=== PATIENT | female | born 1945 | race Caucasian/White ===

== ENCOUNTER → 2017-09-30 08:37 | Outpatient (CLI) | payer MEDICARE, OTHER, SELFPAY ==
[2017-09-30 09:50] LABS: Erythrocyte Sedimentation Rate 1 MM/HR (0-20)
[2017-09-30 10:40] LABS: C-Reactive Protein Quant < 0.5 mg/dL (<1.0)
== END ==
PROVIDERS: Family Provider Internal Medicine; PCP Internal Medicine; Visit Provider Internal Medicine Rheumatology
DX: M06.4 Inflammatory polyarthropathy (principal)
CPT/HCPCS: 36415; 85651; 86140

== ENCOUNTER → 2017-10-04 10:57 | Outpatient (CLI) | payer MEDICARE, OTHER, SELFPAY | PROVIDERS: PCP Internal Medicine | DX: Z13.820 Encounter for screening for osteoporosis (principal); Z78.0 Asymptomatic menopausal state; E11.9 Type 2 diabetes mellitus without complications; Z82.62 Family history of osteoporosis | CPT/HCPCS: 77080 ==

== ENCOUNTER → 2017-12-01 07:36 | Outpatient (CLI) | payer MEDICARE, OTHER, SELFPAY ==
[2017-12-01 08:48] LABS: Erythrocyte Sedimentation Rate 2 MM/HR (0-20); High Sensitivity CRP - Cardiac 1.3 mg/L (1.0-3.0)
== END ==
PROVIDERS: PCP Internal Medicine; Visit Provider Internal Medicine Rheumatology
DX: N06.4 Isolated proteinuria with diffuse endocapillary proliferative glomerulonephritis (principal)
CPT/HCPCS: 36415; 85651; 86140

== ENCOUNTER → 2017-12-16 12:26 | Outpatient (CLI) | payer MEDICARE, OTHER, SELFPAY ==
[2017-12-16 13:15] LABS: Add Manual Diff / Slide Review NO; Basophils Percent Auto 0.9 % (0-2); Eosinophils Percent Auto 0.9 % (2-4); Hematocrit 42.8 % (36-46); Hemoglobin 14.2 g/dL (12.0-16.0); Lymphocytes Percent Auto 28.8 % (25-40); Mean Corpuscular HGB Conc 33.2 % (30-36); Mean Corpuscular Hemoglobin 30.6 PG (26-34); Mean Corpuscular Volume 92.3 fL (80-100); Monocytes Percent Auto 6.8 % (3-14); Neutrophils Absolute Auto 5600 /uL (3000-5900); Neutrophils Percent Auto 62.6 % (50-75); Platelet Count 293 X10^3/uL (150-400); Red Blood Cell Count 4.64 X10^6/uL (4.0-5.2); Red Cell Distribution Width 13.8 % (11.6-14.8)
[2017-12-16 13:40] LABS: Alanine Aminotransferase 23 IU/L (9-52); Aspartate Aminotransferase 23 IU/L (14-36); BUN Creatinine Ratio 21.4 (6-22); Blood Urea Nitrogen 15 mg/dL (7-17); Calcium 9.5 mg/dL (8.4-10.2); Carbon Dioxide 32 mmol/L (22-32); Chloride 104 mmol/L (98-107); Cholesterol 153 mg/dL (140-199); Estimated Glomerular Filt Rate > 60.0 mL/min (>60); Glucose 106 mg/dL (80-110); HDL Cholesterol 82 mg/dL (40-60); HEMOLYSIS < 15 (0-50); LDL Cholesterol Calculated 56 mg/dL (<100); Sodium 144 mmol/L (137-145); Triglycerides 77 mg/dL (35-150)
[2017-12-16 13:44] LABS: Hemoglobin A1C% w Est Avg Glu 6.6 % (4.0-6.0)
[2017-12-16 14:28] LABS: Vitamin B12 825 pg/mL (239-931)
== END ==
PROVIDERS: Family Provider Internal Medicine Endocrinology, Diabetes & Metabolism; PCP Internal Medicine; Referring Provider Internal Medicine Rheumatology; Visit Provider Internal Medicine
DX: I10 Essential (primary) hypertension (principal); E11.9 Type 2 diabetes mellitus without complications; D51.9 Vitamin B12 deficiency anemia, unspecified
CPT/HCPCS: 36415; 80048; 80061; 82607; 83036; 84443; 84450; 84460; 85025

== ENCOUNTER → 2018-01-03 10:47 | Outpatient (CLI) | payer MEDICARE, OTHER, SELFPAY ==
[2018-01-03 12:35] LABS: C-Reactive Protein Quant < 0.5 mg/dL (<1.0); Erythrocyte Sedimentation Rate 4 MM/HR (0-20)
== END ==
PROVIDERS: Family Provider Internal Medicine Endocrinology, Diabetes & Metabolism; PCP Internal Medicine; Visit Provider Internal Medicine Rheumatology
DX: M06.4 Inflammatory polyarthropathy (principal)
CPT/HCPCS: 36415; 85651; 86140

== ENCOUNTER → 2018-02-17 09:09 | Outpatient (CLI) | payer MEDICARE, OTHER, SELFPAY ==
[2018-02-17 10:07] LABS: C-Reactive Protein Quant < 0.5 mg/dL (<1.0)
[2018-02-17 10:20] LABS: Erythrocyte Sedimentation Rate 2 MM/HR (0-20)
== END ==
PROVIDERS: Family Provider Internal Medicine Endocrinology, Diabetes & Metabolism; PCP Internal Medicine; Visit Provider Internal Medicine Rheumatology
DX: M06.4 Inflammatory polyarthropathy (principal)
CPT/HCPCS: 36415; 85651; 86140

== ENCOUNTER → 2018-04-21 09:53 | Outpatient (CLI) | payer MEDICARE, OTHER, SELFPAY ==
[2018-04-21 11:12] LABS: Erythrocyte Sedimentation Rate 5 MM/HR (0-20)
[2018-04-21 11:32] LABS: C-Reactive Protein Quant < 0.5 mg/dL (<1.0)
== END ==
PROVIDERS: Family Provider Internal Medicine Endocrinology, Diabetes & Metabolism; PCP Internal Medicine; Visit Provider Internal Medicine Rheumatology
DX: M06.4 Inflammatory polyarthropathy (principal)
CPT/HCPCS: 36415; 85651; 86140

== ENCOUNTER → 2018-05-22 10:17 | Outpatient (CLI) | payer MEDICARE, OTHER, SELFPAY ==
[2018-05-22 12:06] LABS: Erythrocyte Sedimentation Rate 8 MM/HR (0-20)
[2018-05-22 12:41] LABS: C-Reactive Protein Quant < 0.5 mg/dL (<1.0)
== END ==
PROVIDERS: Family Provider Internal Medicine Endocrinology, Diabetes & Metabolism; PCP Internal Medicine; Visit Provider Internal Medicine Rheumatology
DX: M06.4 Inflammatory polyarthropathy (principal)
CPT/HCPCS: 36415; 85651; 86140

== ENCOUNTER → 2018-06-27 09:19 | Outpatient (CLI) | payer MEDICARE, OTHER, SELFPAY ==
[2018-06-27 10:33] LABS: Erythrocyte Sedimentation Rate 6 MM/HR (0-20)
[2018-06-27 10:38] LABS: Alanine Aminotransferase 30 IU/L (9-52); Aspartate Aminotransferase 23 IU/L (14-36); C-Reactive Protein Quant < 0.5 mg/dL (<1.0); Cholesterol 162 mg/dL (140-199); HDL Cholesterol 78 mg/dL (40-60); LDL Cholesterol Calculated 62 mg/dL (<100); Triglycerides 112 mg/dL (35-150)
== END ==
PROVIDERS: Family Provider Internal Medicine Endocrinology, Diabetes & Metabolism; PCP Internal Medicine; Visit Provider Internal Medicine Rheumatology
DX: M06.4 Inflammatory polyarthropathy (principal); E78.00 Pure hypercholesterolemia, unspecified
CPT/HCPCS: 36415; 80061; 84450; 84460; 85651; 86140

== ENCOUNTER → 2018-08-25 08:59 | Outpatient (CLI) | payer MEDICARE, OTHER, SELFPAY ==
[2018-08-25 10:03] LABS: Erythrocyte Sedimentation Rate 6 MM/HR (0-20)
[2018-08-25 17:48] LABS: High Sensitivity CRP - Cardiac 1.1 mg/L (1.0-3.0)
== END ==
PROVIDERS: Family Provider Internal Medicine Endocrinology, Diabetes & Metabolism; PCP Internal Medicine; Visit Provider Internal Medicine Rheumatology
DX: M06.4 Inflammatory polyarthropathy (principal)
CPT/HCPCS: 36415; 85651; 86140

== ENCOUNTER 2018-09-26 12:26 | Day surgery (SDC) | payer MEDICARE, OTHER, SELFPAY ==
--- NOTE | 2018-09-26 | PATH_ITS ---
[facility] Accession Number: [id number] . 01 Material submitted: . PART A: colon - CECAL POLYP PART B: colon - TRANSVERSE COLON POLYP X2 . 02 Diagnosis: A. Cecum, Polyp, Biopsy: Colonic mucosa with no diagnostic abnormality, consistent with polypoid redundancy. Negative for dysplasia and malignancy. Additional levels were examined. . B. Transverse Colon, Polyps x2, Biopsies: Tubular adenomas. MRV/09/28/2018 . 02 Electronically signed: . Ida Ahn MD, Pathologist NPI- [id number] . 01 Gross description: . Part A: CECAL POLYP: Received in formalin is 1 fragment(s) of gonzalez, soft tissue measuring 0.6 x 0.2 x 0.2 cm which is entirely submitted and submitted entirely in 1 cassette(s) Part B: TRANSVERSE COLON POLYP X2: Received in formalin are 2 fragment(s) of gonzalez, soft tissue measuring 0.2 x 0.2 x 0.2 cm to 0.3 x 0.3 x 0.2 cm which is entirely submitted and submitted entirely in 1 cassette(s) /DMC /DMC . 02 Pathologist provided ICD-10: D12.3 . 02 CPT . 458826, 978230 Performed at: 01 [facility] [address], [place], [place] [id number] MD Raffy Lara MD Phone: [phone] Performed at: 02 [facility] [address] [place], [place] [id number] MD Ida Ahn MD Phone: [phone]
--- NOTE | 2018-09-26 09:23 | P.HP_ITS ---
History of Present Illness Date Patient Seen: 09/26/18 Chief complaint: [id number] Narrative: 72-year-old female who is here for colon cancer screening. Prior colonoscopy performed in 2008 was normal. There is no family history of colon cancer. Patient currently has no active GI issues Patient History Family & Social History Tobacco & Substance use: Smoking Status Never smoker Meds Home Medications Medication Instructions Recorded Confirmed Type Calcium/Vitamin D (#CITRACAL + D 1 tab PO Q DAY #0 11/18/11 04/03/18 History 315 MG-200 IU) Coenzyme Q10 (#CO Q-10) 50 mg PO QID #0 11/18/11 04/03/18 History Metformin Hydrochloride 500 mg PO BID #0 11/18/11 04/03/18 History (#GLUCOPHAGE) Multivitamin, Minerals, and 1 tab PO Q DAY #0 11/18/11 04/03/18 History (#CENTRUM SILVER) metronidazole [MetroCream] 0.75 % TOPICAL #45 gm 05/04/12 04/03/18 History cyanocobalamin (vitamin B-12) 1,000 mcg PO #0 11/23/15 04/03/18 History pramipexole [Mirapex] 0.25 mg PO HS #0 tab 12/10/15 04/03/18 History pregabalin [Lyrica] 75 mg PO BID #0 cap 01/06/16 04/03/18 History pravastatin 40 mg PO HS #0 03/08/16 04/03/18 History TUMERIC PO 09/19/17 04/03/18 History triamcinolone acetonide 0.1 % 1 applictn TOP DAILY 09/19/17 04/03/18 History topical cream calcium carbonate 600 mg calcium 600 mg PO DAILY tab 10/05/17 04/03/18 History (1,500 mg) tablet cholecalciferol (vitamin D3) 2,000 2,000 unit PO DAILY 10/05/17 04/03/18 History unit capsule esomeprazole magnesium 40 mg 40 mg PO DAILY 10/05/17 04/03/18 History capsule,delayed release duloxetine 30 mg capsule,delayed 30 mg PO QDAY #90 cap 04/03/18 Rx release losartan 25 mg PO DAILY 09/26/18 09/26/18 History Allergies Allergy/AdvReac Type Severity Reaction Status Date / Time No Known Drug Allergies Allergy Verified 09/26/18 13:19 Review of Systems Review of Systems All systems reviewed & are unremarkable except as noted in HPI and below Exam Narrative Exam Narrative: General: Patient is overweight, not in apparent distress Cardiovascular: Regular rate and rhythm, no murmurs, rubs, or gallops; no evidence of edema; no palpable abdominal aortic aneurysm Gastrointestinal: Normoactive bowel sounds, soft, nontender, nondistended, no rebound tenderness, no hepatosplenomegaly, no evidence of hernia Assessment & Plan Assessment & Plan narrative: 72-year-old female here for colon cancer screening Regarding the procedure(s), the risks and potential complications, benefits, and alternatives (including not doing the procedure) were discussed with the p atient. The risks include but are not limited to bleeding, splenic injury, infection, perforation which may require surgical intervention, missed lesions, and adverse reactions to sedative medicines. After a question and answer period, the patient agreed to proceed with the procedure(s) and gives informed consent.
[2018-09-26 13:20] VITALS: BMI 26.2
[2018-09-26 13:25] VITALS: BP 148/76; PULSE 69; RESP 15; TEMP 36.3; O2SAT 98
[2018-09-26] MEDS: SODIUM CHLORIDE 0.9% 1,000 ML 70 ML IV (13:46)
[2018-09-26] MEDS: MIDAZOLAM 5 MG/5 ML VIAL IV (14:12)
--- NOTE | 2018-09-26 14:12 | P.OP.ENDO_ITS ---
Operative Date/Time/Diagnoses Date of procedure: 09/26/18 Procedure Notes Procedure in detail: Surgeon: Levon Ford MD Procedure: Colonoscopy with polypectomy Preoperative diagnosis: Colon cancer screening Postoperative diagnosis: Colon polyps x3 status post polypectomy; grade 2 i nternal hemorrhoids Medications: Conscious sedation using 2 mg IV of Midazolam and 100 mcg IV of Fentanyl Preanesthesia Assessment An H and P was performed/updated and the Px?s ASA class is 2. The procedure was discussed in detail with the patient. The potential risks and complications including infection, bleeding, missed lesions, perforation, need for surgery in case of perforation, prolonged hospital stay, and were explained. A brief question and answer period was allotted and once all questions were answered, informed consent was obtained. The patient was brought back to the procedure room and placed on standard monitoring. The patient?s vital signs were monitored continuously throughout the entire procedure. Prior to starting, a timeout was performed to confirm the patient?s identity, allergies, medications, and procedure. Procedure in detail The patient was placed in left lateral decubitus position and once adequate sedation was obtained a [place] was performed. Perianal exam revealed external skin tags. The digital rectal examination did not reveal any palpable lesions. The tip of the colonoscope was placed in the anal canal and advanced without difficulty all the way to the cecum which was identified by the appendiceal orifice and the ileocecal valve. Careful examination of all pena of the colon was performed with irrigation of any residual stool. In the cecum, a 2 mm sessile polyp was removed by means of cold Jumbo forceps. Resection and retrieval was complete. In the transverse colon, there were 2 sessile polyps measuring 2-3 mm. These were removed by means of cold Jumbo forceps. Resection and retrieval was complete. Retroflexion was performed in the rectum which revealed grade 2 internal hemorrhoids. The patient tolerated the procedure well and will be brought back to the recovery area to be discharged once criteria are met. The prep was judged to be good and adequate to identify polyps less than 5 mm. The withdrawal time was 11 minutes. The total physician intraservice time was 17 minutes. Complications There were no complications and estimated blood loss was minimal. Recommendations: Resume previous diet Continue outPx medications Follow up pathology results Repeat colonoscopy in 3 or 5 years depending on pathology results An emergency contact number was given to the patient for any complications related to the procedure
[2018-09-26] MEDS: fentaNYL 250 MCG/5 ML INJ IV (14:13)
[2018-09-26 14:30] VITALS: BP 114/58; PULSE 66; RESP 10; O2SAT 97
[2018-09-26 14:31] VITALS: BP 114/58; PULSE 66; RESP 10; TEMP 36.6; O2SAT 97
[2018-09-26 14:35] VITALS: BP 106/58; PULSE 68; RESP 12; O2SAT 96
[2018-09-26 14:40] VITALS: BP 117/63; PULSE 65; RESP 11; O2SAT 96
[2018-09-26 14:54] VITALS: BP 108/68; PULSE 63; RESP 15; TEMP 36.4; O2SAT 98
--- NOTE | 2018-09-26 15:16 | SUR.PHASEII ---
1505 States that she feels ready to go home. Tolerating PO well. Instructions reviewed, no questions. Preparing to discharge.
--- NOTE | 2018-09-26 15:18 | SUR.PHASEII ---
Patient states that she will resume her usual diabetes regiment.
--- NOTE | 2018-09-26 15:30 | SUR.PHASEII ---
1522 Stable, pleasant, oriented. To car in by RN. No questions/concerns
== END 2018-09-26 15:22 | disposition home or self-care (01) ==
PROVIDERS: Family Provider Internal Medicine Endocrinology, Diabetes & Metabolism; PCP Internal Medicine; Visit Provider Internal Medicine Gastroenterology
PROC: 0DJD8ZZ Inspection of Lower Intestinal Tract, Via Natural or Artificial Opening Endoscopic (ICD-10-PCS; CPT 45378; principal; 2018-09-26 14:00)
DX: Z12.11 Encounter for screening for malignant neoplasm of colon (principal); K64.1 Second degree hemorrhoids; D12.3 Benign neoplasm of transverse colon
CPT/HCPCS: 45380; 88305; J2250; J3010

== ENCOUNTER → 2019-02-12 10:17 | Outpatient (CLI) | payer MEDICARE, OTHER, SELFPAY ==
[2019-02-12 12:03] LABS: Alanine Aminotransferase 21 IU/L (9-52); Aspartate Aminotransferase 25 IU/L (14-36); BUN Creatinine Ratio 27.1 (6-22); Blood Urea Nitrogen 19 mg/dL (7-17); Calcium 9.9 mg/dL (8.4-10.2); Carbon Dioxide 29 mmol/L (22-32); Chloride 100 mmol/L (98-107); Cholesterol 169 mg/dL (140-199); Estimated Glomerular Filt Rate > 60.0 mL/min (>60); Glucose 113 mg/dL (80-110); HDL Cholesterol 75 mg/dL (40-60); HEMOLYSIS < 15 (0-50); LDL Cholesterol Calculated 74 mg/dL (<100); Potassium 4.8 mmol/L (3.4-5.1); Sodium 139 mmol/L (137-145); Triglycerides 99 mg/dL (35-150)
== END ==
PROVIDERS: PCP Internal Medicine; Visit Provider Internal Medicine
DX: I10 Essential (primary) hypertension (principal); E78.00 Pure hypercholesterolemia, unspecified
CPT/HCPCS: 36415; 80048; 80061; 84450; 84460

== ENCOUNTER → 2019-04-26 16:01 | Outpatient (CLI) | payer MEDICARE, OTHER, SELFPAY ==
--- NOTE | 2019-04-26 | DI.MRI.S_ITS ---
PROCEDURE: MR LUMBAR SPINE WO CON INDICATIONS: Low back pain TECHNIQUE: Noncontrast sagittal T1 spin echo and T2 fast echo, sagittal STIR, axial T1 and T2 fast spin echo through the lumbar spine. In cases with scoliosis, additional coronal T2 fast spin echo may be performed. COMPARISON: None. FINDINGS: Image quality: Excellent. Alignment and Curvature: There is moderate dextroconvex lumbar scoliosis. Bone Marrow: Marrow is of normal overall signal. No acute vertebral body compression fractures. Spinal Cord: Conus medullaris terminates at the L1 level. Visualized cord demonstrates normal signal and size. Paraspinous Soft Tissues: No paravertebral masses. A 2.7 cm left renal cyst is seen laterally. T12-L1: No significant abnormality is seen. L1-L2: The disc height and disc signal are relatively well-preserved. No significant disc bulge is seen. Moderate facet joint hypertrophy is seen. No significant neural foraminal or central canal narrowing can be seen. When comparison is made with the prior examination, these findings are similar. L2-L3: The disc height is well-preserved. Loss of disc signal is seen at this level. Mild generalized disc bulge is seen. Moderate facet joint hypertrophy is seen. There is mild left-sided and no right-sided neural foraminal narrowing seen. No central canal narrowing is seen. When comparison is made with the prior examination, these findings are similar. L3-L4: At least moderate loss of disc height and disc signal can be seen. Moderate disc bulge is seen, which is eccentric to the left. There is a mild central disc protrusion present. Moderate facet joint hypertrophy is seen. There is moderate left-sided and mild right-sided neural foraminal narrowing seen. Kezo-la-nrmmgckl central canal narrowing is seen. When comparison is made with the prior examination, these findings are similar. L4-L5: Mild to moderate loss of disc height and disc signal can be seen. Moderate disc bulge is seen, with a central disc protrusion. There is moderate to prominent right-sided and moderate left-sided neural foraminal narrowing seen. There is moderate right-sided and mild left-sided neural foraminal narrowing seen. Moderate central canal narrowing is seen. These imaging findings have mildly progressed compared to the prior study. L5-S1: Moderate to severe loss of disc height and disc signal are seen. Moderate disc bulge is seen, with a central disc extrusion. Moderate facet joint hypertrophy is seen. There is at least moderate right-sided and moderate to severe left-sided neural foraminal narrowing seen at compression can be seen upon the exiting nerve roots, left worse than right. Moderate central canal narrowing is seen. When comparison is made with the prior examination, these findings are similar. IMPRESSION: Numerous levels of lumbar spine degenerative change are seen, which are similar to 2011, although mildly progressed at the L4-L5 level since that time. Dictated by: Brendon Marte M.D. on 04/26/2019 at 16:45 Approved by: Brendon Marte M.D. on 04/26/2019 at 16:51
== END ==
PROVIDERS: PCP Internal Medicine; Visit Provider Orthopaedic Surgery
DX: M54.5 Low back pain (principal); M47.816 Spondylosis without myelopathy or radiculopathy, lumbar region; M47.817 Spondylosis without myelopathy or radiculopathy, lumbosacral region
CPT/HCPCS: 72148

== ENCOUNTER → 2019-08-09 15:47 | Outpatient (CLI) | payer MEDICARE, OTHER, SELFPAY ==
[2019-08-11 05:07] LABS: COVID19 Sendout Not Detected (Not Detected)
== END ==
PROVIDERS: PCP Internal Medicine; Visit Provider Physician Assistant
DX: R68.89 Other general symptoms and signs (principal)
CPT/HCPCS: 87635

== ENCOUNTER → 2019-08-09 15:57 | Outpatient (CLI) | payer MEDICARE, OTHER, SELFPAY ==
[2019-08-09 16:21] LABS: Add Manual Diff / Slide Review NO; Basophils Absolute Auto 100 /uL (0-100); Basophils Percent Auto 1.2 % (0-2); Eosinophils Absolute Auto 100 /uL (0-450); Hematocrit 41.3 % (36-46); Hemoglobin 13.6 g/dL (12.0-16.0); Lymphocytes Absolute Auto 2600 /uL (1100-4500); Lymphocytes Percent Auto 34.9 % (25-40); Mean Corpuscular Hemoglobin 30.2 PG (26-34); Mean Corpuscular Volume 91.7 fL (80-100); Monocytes Absolute Auto 500 /uL (0-900); Neutrophils Absolute Auto 4200 /uL (1500-7000); Neutrophils Percent Auto 54.9 % (50-75); Platelet Count 298 X10^3/uL (150-400); Red Blood Cell Count 4.51 X10^6/uL (4.0-5.2); Red Cell Distribution Width 13.7 % (11.6-14.8); White Blood Cell Count 7.6 X10^3/uL (4.5-11.0)
[2019-08-09 16:35] LABS: Hemoglobin A1C% w Est Avg Glu 6.7 % (4.0-6.0)
[2019-08-09 16:39] LABS: Erythrocyte Sedimentation Rate 8 MM/HR (0-20)
[2019-08-09 17:00] LABS: Alanine Aminotransferase 13 IU/L (<35); Albumin 4.6 g/dL (3.5-5.0); Albumin Globulin Ratio 1.7 (1.0-2.8); Alkaline Phosphatase 47 U/L (38-126); Aspartate Aminotransferase 23 IU/L (14-36); BUN Creatinine Ratio 26.9 (6-22); Bilirubin Total 0.3 mg/dL (0.2-1.3); Blood Urea Nitrogen 18 mg/dL (7-17); Calcium 9.8 mg/dL (8.4-10.2); Carbon Dioxide 27 mmol/L (22-32); Chloride 102 mmol/L (98-107); Estimated Glomerular Filt Rate > 60.0 mL/min (>60); Globulin 2.7 g/dL (1.7-4.1); Glucose 109 mg/dL (80-110); HEMOLYSIS < 15 (0-50); Potassium 4.5 mmol/L (3.4-5.1); Sodium 137 mmol/L (137-145); Total Protein 7.3 g/dL (6.3-8.2)
[2019-08-09 17:04] LABS: Prealbumin 25.2 mg/dL (17.6-36.0)
[2019-08-09 17:16] LABS: Vitamin D 25 Hydroxy (D3) 78.2 ng/mL (30.0-100.0)
[2019-08-09 17:29] LABS: TSH w/ Reflex to FT4 0.54 uIU/mL (0.47-4.68)
[2019-08-09 17:34] LABS: C-Reactive Protein Quant < 0.5 mg/dL (<1.0)
[2019-08-09 17:46] LABS: Vitamin B12 949 pg/mL (239-931)
== END ==
PROVIDERS: PCP Internal Medicine; Referring Provider Internal Medicine; Visit Provider Internal Medicine
DX: R63.4 Abnormal weight loss (principal); M35.3 Polymyalgia rheumatica; E11.9 Type 2 diabetes mellitus without complications; E53.8 Deficiency of other specified B group vitamins; R68.89 Other general symptoms and signs; Z92.241 Personal history of systemic steroid therapy; E55.9 Vitamin D deficiency, unspecified
CPT/HCPCS: 36415; 80053; 82306; 82607; 83036; 84134; 84443; 85025; 85651; 86140; 87635

== ENCOUNTER → 2020-03-25 11:27 | Outpatient (CLI) | payer MEDICARE, OTHER, SELFPAY ==
--- NOTE | 2020-03-25 | DI.MG.S_ITS ---
BILATERAL DIGITAL SCREENING MAMMOGRAM 3D/2D WITH CAD: 03/25/2020 CLINICAL: Routine screening. Comparison is made to exams dated: 11/11/2016 mammogram, 11/06/2015 mammogram, and 08/14/2014 mammogram - [facility]. There are scattered fibroglandular elements in both breasts. Current study was also evaluated with a Computer Aided Detection (CAD) system. No significant masses, calcifications, or other findings are seen in either breast. There has been no significant interval change. IMPRESSION: NEGATIVE There is no mammographic evidence of malignancy. A 1 year screening mammogram is recommended. This exam was interpreted at Station ID: [id number]. NOTE: For mammograms, a report in lay terms will be sent to the patient. Approximately 15% of breast malignancies will not be visualized mammographically. In the management of a palpable breast mass, a negative mammogram must not discourage biopsy of a clinically suspicious lesion. Electronically Signed By: Jacob sandra/tay:03/25/2020 13:30:17 copy to: Brayden Stuart letter sent: Normal Exam ACR BI-RADS Category 1: Negative [id number]
== END ==
PROVIDERS: PCP Internal Medicine; Referring Provider Internal Medicine; Visit Provider Internal Medicine
DX: Z12.31 Encounter for screening mammogram for malignant neoplasm of breast (principal)
CPT/HCPCS: 77063; 77067

== ENCOUNTER → 2020-04-14 08:35 | Outpatient (CLI) | payer MEDICARE, OTHER, SELFPAY ==
[2020-04-14 10:08] LABS: Hemoglobin A1C% w Est Avg Glu 6.5 % (4.0-6.0)
[2020-04-14 10:28] LABS: Erythrocyte Sedimentation Rate 4 MM/HR (0-20)
[2020-04-14 10:32] LABS: Alanine Aminotransferase 17 IU/L (<35); Albumin 4.3 g/dL (3.5-5.0); Albumin Globulin Ratio 1.9 (1.0-2.8); Alkaline Phosphatase 41 U/L (38-126); Aspartate Aminotransferase 26 IU/L (14-36); BUN Creatinine Ratio 31.6 (6-22); Bilirubin Total 0.3 mg/dL (0.2-1.3); Blood Urea Nitrogen 24 mg/dL (7-17); Calcium 9.5 mg/dL (8.4-10.2); Carbon Dioxide 30 mmol/L (22-32); Chloride 102 mmol/L (98-107); Cholesterol 148 mg/dL (140-199); Estimated Glomerular Filt Rate > 60.0 mL/min (>60); Globulin 2.3 g/dL (1.7-4.1); Glucose 116 mg/dL (80-110); HDL Cholesterol 81 mg/dL (40-60); HEMOLYSIS < 15 (0-50); LDL Cholesterol Calculated 52 mg/dL (<100); Potassium 4.7 mmol/L (3.4-5.1); Sodium 137 mmol/L (137-145); Total Protein 6.6 g/dL (6.3-8.2); Triglycerides 77 mg/dL (35-150)
[2020-04-14 10:41] LABS: C-Reactive Protein Quant < 0.5 mg/dL (<1.0)
[2020-04-14 11:21] LABS: Creatinine Urine Random 92.5 mg/dL
[2020-04-14 11:26] LABS: Microalbumin Urine Random < 0.6 mg/dL (0-1.6)
== END ==
PROVIDERS: PCP Internal Medicine; Referring Provider Student in an Organized Health Care Education/Training Program; Visit Provider Student in an Organized Health Care Education/Training Program
DX: I10 Essential (primary) hypertension (principal); E11.9 Type 2 diabetes mellitus without complications; E78.5 Hyperlipidemia, unspecified; M35.3 Polymyalgia rheumatica
CPT/HCPCS: 36415; 80053; 80061; 82043; 82570; 83036; 85651; 86140

== ENCOUNTER → 2020-07-06 07:11 | Outpatient (CLI) | payer MEDICARE, OTHER, SELFPAY ==
[2020-07-06 08:21] LABS: Hemoglobin A1C% w Est Avg Glu 6.5 % (4.0-6.0)
== END ==
PROVIDERS: PCP Student in an Organized Health Care Education/Training Program; Referring Provider Internal Medicine; Visit Provider Student in an Organized Health Care Education/Training Program
DX: E11.9 Type 2 diabetes mellitus without complications (principal)
CPT/HCPCS: 36415; 83036

== ENCOUNTER → 2020-09-15 08:17 | Outpatient (CLI) | payer MEDICARE, OTHER, SELFPAY ==
[2020-09-15 17:49] LABS: Hemoglobin A1C% w Est Avg Glu 6.5 % (4.0-6.0)
[2020-09-15 18:17] LABS: Thyroid Stimulating Hormone 0.984 uIU/mL (0.47-4.68)
== END ==
PROVIDERS: PCP Student in an Organized Health Care Education/Training Program; Referring Provider Internal Medicine Endocrinology, Diabetes & Metabolism; Visit Provider Internal Medicine Endocrinology, Diabetes & Metabolism
DX: E11.42 Type 2 diabetes mellitus with diabetic polyneuropathy (principal)
CPT/HCPCS: 36415; 83036; 84443

== ENCOUNTER → 2020-11-05 10:32 | Outpatient (CLI) | payer MEDICARE, OTHER, SELFPAY ==
[2020-11-05 11:16] LABS: COVID19 -Nasal RAPID Negative (Negative)
== END ==
PROVIDERS: PCP Student in an Organized Health Care Education/Training Program; Visit Provider Specialist
DX: Z20.822 Contact with and (suspected) exposure to COVID-19 (principal)
CPT/HCPCS: 87635; C9803

== ENCOUNTER 2020-11-06 06:34 | Day surgery (SDC) | payer MEDICARE, OTHER, SELFPAY ==
[2020-11-06] VITALS (7 sets, daily range): BP systolic 102–124; BP diastolic 42–70; PULSE 60–71; RESP 14–19; TEMP 36.1–36.5; O2SAT 94–99; BMI 26.9
--- NOTE | 2020-11-06 | PATH_ITS ---
[facility] Accession Number: [id number] . 01 Material submitted: . colon - ASCENDING COLON POLYP BIOPSY . 02 Diagnosis: Ascending Colon, Polyp, Biopsy: Tubular adenoma. MRV 11/11/2020 1015 Local . 02 Electronically signed: . Ida Ahn MD, Pathologist NPI- [id number] . 01 Gross description: . ASCENDING COLON POLYP BIOPSY: Received in formalin are 2 fragment(s) of gonzalez, soft tissue measuring 0.4 x 0.3 x 0.2 cm to 0.2 x 0.1 x 0.1 cm submitted entirely in 1 cassette(s) /GRIS 11/07/2020 0242 Local . 02 Pathologist provided ICD-10: D12.2 . 02 CPT . 452584 Performed at: 01 [facility] [address] [id number] MD Raffy Lraa MD Phone: [phone] Performed at: 02 [facility] [id number] [facility] [address] [place], [place] [id number] MD Ida Ahn MD Phone: [phone]
[2020-11-06] MEDS: LACTATED RINGERS 1,000 ML 42 ML IV (07:39)
--- NOTE | 2020-11-06 08:02 | P.HP_ITS ---
History of Present Illness History of Present Illness [place] [facility] [place]ative: Patient is a woman who had a colonoscopy by a another physician. She is not sure when that was but she was told to come back in 2 years per her history. She may be overdue. Patient History Medical History Polymyalgia rheumatica Surgical History History of blepharoplasty Status post appendectomy Status post bunionectomy Status post tonsillectomy and adenoidectomy Family & Social History Social History: household members spouse Tobacco & Substance use: Smoking Status Never smoker alcohol intake frequency a few times a week Substance Use Type does not use Meds Home Medications and Allergies Home Medications Medication Instructions Recorded Confirmed Type Calcium/Vitamin D (#CITRACAL + D 1 tab PO Q DAY #0 11/18/11 08/09/19 History 315 MG-200 IU) Coenzyme Q10 (#CO Q-10) 50 mg PO QID #0 11/18/11 11/06/20 History metformin 500 mg tablet,extended 1,000 mg PO BID #0 11/18/11 11/06/20 History release 24 hr cyanocobalamin (vitamin B-12) 1,000 mcg PO #0 11/23/15 08/09/19 History 1,000 mcg tablet,extended release pramipexole 0.25 mg tablet 0.25 mg PO HS #0 tab 12/10/15 11/06/20 History (Mirapex) pregabalin 75 mg capsule (Lyrica) 75 mg PO DAILY #0 cap 01/06/16 11/06/20 History pravastatin 40 mg tablet 40 mg PO HS #0 03/08/16 11/06/20 History TUMERIC PO 09/19/17 08/09/19 History triamcinolone acetonide 0.1 % 1 applictn TOP DAILY 09/19/17 11/06/20 History topical cream calcium carbonate 600 mg calcium 600 mg PO DAILY tab 10/05/17 11/06/20 History (1,500 mg) tablet cholecalciferol (vitamin D3) 50 2,000 unit PO DAILY 10/05/17 11/06/20 History mcg (2,000 unit) capsule duloxetine 30 mg capsule,delayed 30 mg PO QDAY #90 cap 04/03/18 11/06/20 Rx release losartan 25 mg tablet 25 mg PO BID tab 08/09/19 11/06/20 History sodium,potassium,mag sulfates 17.5 177 ml PO DAILY #354 ml 10/14/20 Rx gram-3.13 gram-1.6 gram oral soln Allergies Allergy/AdvReac Type Severity Reaction Status Date / Time No Known Drug Allergies Allergy Verified 08/09/19 15:29 Review of Systems Review of Systems Narrative: Patient's sugar this morning was 122. She is diabetic. She has no heart or breathing problems at this time. She suffers from constipation intermittently. No seizures or blackouts. Exam Vital Signs (past 8 hours): - 11/06/20 07:23 Temperature 97.7 F Pulse Rate 71 Respiratory Rate 16 Blood Pressure 102/70 Pulse Oximetry 99 Oxygen Delivery Method Room Air Narrative Exam Narrative: Pleasant cooperative patient no apparent distress. Lungs are clear to auscultation. No rales or rhonchi. Heart regular rate and rhythm no murmur gallop. Abdomen is soft nontender without mass. No obvious hernias. Patient is alert and oriented x3. Assessment & Plan Assessment & Plan narrative: The patient for a screening colonoscopy. I have discussed the procedure with them. Risks of bleeding, perforation which would necessitate major operation, failure to find remove all lesions, the potential tattoo were all discussed. All questions were answered. They wished to proceed.
--- NOTE | 2020-11-06 08:04 | PM.PREOP ---
Pre-operative Note COVID-19 COVID-19 status: Negative Result date/Date tested (Pos, Neg/Pending): 11/05/20 Interval Note History & Physical reviewed/Exam performed by Physician: Yes Changes to H&P: No ASA Class (for procedural sedation): II
[2020-11-06] MEDS: fentaNYL 250 MCG/5 ML INJ IV (08:14)
[2020-11-06] MEDS: MIDAZOLAM 5 MG/5 ML VIAL IV (08:15)
--- NOTE | 2020-11-06 08:43 | PM.OP.ENDO ---
Operative Date/Time/Diagnoses Date of procedure: 11/06/20 Time of procedure: 08:43 Pre-op diagnosis: Personal history of polyps. Recommendation for repeat colonoscopy in 2 years. She believes she has gone beyond that time. Post-op diagnosis: same ( small Polyp in the ascending colon . occasional diverticuli.) Procedure & Clinicians Study performed: Colonoscopy with cold biopsy Same procedure as scheduled: Yes Indications: screening in a high risk patient Surgeon: Acosta Funes Procedure Notes SCOAP/Timeout: performed Procedure in detail: The patient was placed in the left lateral decubitus position and underwent IV sedation directed by the surgeon consisting of fentanyl and Versed. Digital exam was Remarkable for protruding internal hemorrhoid.. The scope was inserted and advanced through the rectum into the sigmoid, descending, transverse, and ascending colon. The patient had to be repositioned pressure applied a stiffener inserted in order to reach the cecum. The cecum was reached identified by the ileocecal valve and the appendiceal opening. The scope was gradually brought out. One Polyp was found in the ascending colon. It was biopsied and removed with cold forceps.. The scope ultimately was retroflexed in the rectum. The appearance was Unremarkable internally. The scope was removed and the patient tolerated the procedure well. the prep was very good Scope withdrawal time: 7 minutes( 8 total) Sedation minutes: 23 Findings: diverticulosis and polyp Specimen(s): other ( polyp) Post-procedure Recommendations: Colonscopy in 5 years Follow up: as needed Disposition: PACU
== END 2020-11-06 09:14 | disposition home or self-care (01) ==
PROVIDERS: PCP Student in an Organized Health Care Education/Training Program; Referring Provider Specialist; Visit Provider Specialist
PROC: 0DJD8ZZ Inspection of Lower Intestinal Tract, Via Natural or Artificial Opening Endoscopic (ICD-10-PCS; CPT 45378; principal; 2020-11-06 07:45)
DX: Z12.11 Encounter for screening for malignant neoplasm of colon (principal); Z86.010 Personal history of colon polyps; M35.3 Polymyalgia rheumatica; K57.30 Diverticulosis of large intestine without perforation or abscess without bleeding; D12.2 Benign neoplasm of ascending colon
CPT/HCPCS: 45380; 99152; J2250; J3010

== ENCOUNTER → 2021-08-04 07:02 | Outpatient (CLI) | payer MEDICARE, OTHER, SELFPAY ==
[2021-08-04 08:22] LABS: Hematocrit 42.2 % (36-46); Hemoglobin 14.1 g/dL (12.0-16.0); Mean Corpuscular HGB Conc 33.5 % (30-36); Mean Corpuscular Hemoglobin 30.6 PG (26-34); Mean Corpuscular Volume 91.2 fL (80-100); Platelet Count 293 X10^3/uL (150-400); Red Blood Cell Count 4.62 X10^6/uL (4.0-5.2); Red Cell Distribution Width 13.6 % (11.6-14.8); White Blood Cell Count 7.4 X10^3/uL (4.5-11.0)
[2021-08-04 08:23] LABS: Creatinine Urine Random 122.2 mg/dL
[2021-08-04 08:24] LABS: Protein (Total) Urine Random < 5 mg/dL (0-12); Protein Creatinine Ratio Urine 0.04 GRAM/24H
[2021-08-04 08:27] LABS: Hemoglobin A1C% w Est Avg Glu 6.8 % (4.0-6.0)
[2021-08-04 08:35] LABS: Alanine Aminotransferase 17 IU/L (<35); Albumin 4.8 g/dL (3.5-5.0); Albumin Globulin Ratio 1.6 (1.0-2.8); Alkaline Phosphatase 43 U/L (38-126); Aspartate Aminotransferase 26 IU/L (14-36); BUN Creatinine Ratio 25.6 (6-22); Bilirubin Total 0.5 mg/dL (0.2-1.3); Blood Urea Nitrogen 21 mg/dL (7-17); Calcium 9.6 mg/dL (8.4-10.2); Carbon Dioxide 31 mmol/L (22-32); Chloride 101 mmol/L (98-107); Cholesterol 175 mg/dL (140-199); Estimated Glomerular Filt Rate > 60 mL/min (>60); Glucose 126 mg/dL (80-110); HDL Cholesterol 84 mg/dL (40-60); HEMOLYSIS < 15 (0-50); LDL Cholesterol Calculated 71 mg/dL (<100); Potassium 4.5 mmol/L (3.4-5.1); Sodium 141 mmol/L (137-145); Total Protein 7.8 g/dL (6.3-8.2); Triglycerides 99 mg/dL (35-150)
[2021-08-05 16:39] LABS: Hep C Virus Ab w/Reflex Quant NEGATIVE s/c (NEGATIVE)
== END ==
PROVIDERS: PCP Student in an Organized Health Care Education/Training Program; Referring Provider Student in an Organized Health Care Education/Training Program; Visit Provider Student in an Organized Health Care Education/Training Program
DX: Z11.59 Encounter for screening for other viral diseases (principal); E11.40 Type 2 diabetes mellitus with diabetic neuropathy, unspecified; E78.5 Hyperlipidemia, unspecified
CPT/HCPCS: 36415; 80053; 80061; 82570; 83036; 84156; 85027; 86803

== ENCOUNTER → 2021-09-27 16:22 | Outpatient (CLI) | payer MEDICARE, OTHER, SELFPAY ==
--- NOTE | 2021-09-27 16:25 | DI.RAD.S_ITS ---
PROCEDURE: XR HIP W PEL IF DONE KAREN MIN 4V INDICATIONS: GLF 3 weeks ago with worsening hip pain TECHNIQUE: AP pelvis with lateral view(s) of the bilateral hip(s). COMPARISON: [facility], , HIP 2V LEFT, 02/17/2011, 15:23. FINDINGS: Bones: No fractures or dislocations. Pelvic ring appears intact. No suspicious bony lesions. Mild bilateral hip joint space narrowing. Moderate bilateral periarticular osteophyte formation at the hip joints. Soft tissues: The visualized bowel gas pattern is normal. No suspicious soft tissue calcifications. IMPRESSION: Hip joint osteoarthritis bilaterally. No acute fracture. No osseous lesion. If symptoms and/or clinical suspicion for pathology persist, further assessment with repeat, or advanced imaging (e.g., CT, MRI, or bone scan) may be helpful for further assessment. Dictated by: Yenifer Woodall M.D. on 09/27/2021 at 16:57 Approved by: Yenifer Woodall M.D. on 09/27/2021 at 16:57
== END ==
PROVIDERS: PCP Student in an Organized Health Care Education/Training Program; Referring Provider Student in an Organized Health Care Education/Training Program; Visit Provider Student in an Organized Health Care Education/Training Program
DX: M16.0 Bilateral primary osteoarthritis of hip (principal); M25.551 Pain in right hip; M25.552 Pain in left hip
CPT/HCPCS: 73522

== ENCOUNTER 2021-10-26 15:44 | Emergency (ER) | payer MEDICARE, OTHER, SELFPAY ==
[2021-10-26 15:48] VITALS: PULSE 81; RESP 16; TEMP 35.8; O2SAT 98; BMI 26.2
[2021-10-26 15:51] VITALS: BP 169/78
--- NOTE | 2021-10-26 15:53 | DI.US.S_ITS ---
PROCEDURE: US PERIPH VENOUS LOW EXTREM LT INDICATIONS: r/o DVT left leg swelling, pain. Recent flight TECHNIQUE: Real-time imaging, as well as color and pulse Doppler interrogation, were performed of the lower extremity deep veins from the inguinal ligament to the popliteal fossa. COMPARISON: None. FINDINGS: The common femoral, femoral and popliteal veins are normally compressible, and free of intraluminal thrombus. Color and pulse Doppler demonstrate normal phasic intraluminal flow. There is normal augmentation response to distal compression maneuver. Popliteal fossa collection measuring 5.7 x 2.2 x 1.5 cm. IMPRESSION: No left lower extremity DVT. Left Rubi's cyst measuring 5.7 cm. Dictated by: Greg Echavarria M.D. on 10/26/2021 at 17:37 Approved by: Greg Echavarria M.D. on 10/26/2021 at 17:38
--- NOTE | 2021-10-26 18:29 | DI.RAD.S_ITS ---
PROCEDURE: XR LUMBAR SPINE 2-3V INDICATIONS: low back pain with radiation to left hip TECHNIQUE: 3 views of the lumbar spine were acquired. COMPARISON: [facility], CR, XR LUMBAR SPINE 2 OR 3 VIEWS, 04/18/2019, 15:58. FINDINGS: Bones: Five [id number] vertebrae are present. There is mild dextroconvex curvature of the lumbar spine. Mild grade 1 anterolisthesis of L4 on L5 measuring 3 mm. No vertebral body compression fractures. No suspicious bony lesions. Multilevel disc space narrowing and degenerative endplate changes are seen that are most prominent at the L3-4 level. Multilevel facet hypertrophy is seen throughout the lumbar spine. Soft tissues: Overlying bowel gas pattern is normal. No suspicious soft tissue calcifications. IMPRESSION: 1. No acute osseous abnormality. If the symptoms persist, consider cross sectional imaging such as MRI or CT for further assessment. 2. Multilevel spondylosis. Dictated by: Cyrus Yepez M.D. on 10/26/2021 at 19:33 Approved by: Cyrus Yepez M.D. on 10/26/2021 at 19:35
--- NOTE | 2021-10-26 18:37 | ED.EXTPRO ---
HPI - Extremity Problem <LAY ChristyP - Last Filed: 10/26/21 19:47> General Chief complaint: Extremity Problem,Nontraumatic Stated complaint: LEFT LEG PAIN Time Seen by Provider: 10/26/21 18:04 Mode of arrival: Family Vehicle Related Data Home Medications Medication Instructions Recorded Confirmed Calcium/Vitamin D (#CITRACAL + D 1 tab PO Q DAY ##0 11/18/11 08/09/19 315 MG-200 IU) Coenzyme Q10 (#CO Q-10) 50 mg PO QID ##0 11/18/11 11/06/20 metformin 500 mg tablet,extended 1,000 mg PO BID ##0 11/18/11 11/06/20 release 24 hr cyanocobalamin (vitamin B-12) 1,000 mcg PO ##0 11/23/15 08/09/19 1,000 mcg tablet,extended release pramipexole 0.25 mg tablet 0.25 mg PO HS #0 tabs 12/10/15 11/06/20 (Mirapex) pregabalin 75 mg capsule (Lyrica) 75 mg PO DAILY #0 caps 01/06/16 11/06/20 pravastatin 40 mg tablet 40 mg PO HS ##0 03/08/16 11/06/20 TUMERIC PO 09/19/17 08/09/19 triamcinolone acetonide 0.1 % 1 applictn topical DAILY 09/19/17 11/06/20 topical cream calcium carbonate 600 mg calcium 600 mg PO DAILY 10/05/17 11/06/20 (1,500 mg) tablet cholecalciferol (vitamin D3) 50 2,000 unit PO DAILY 10/05/17 11/06/20 mcg (2,000 unit) capsule losartan 25 mg tablet 25 mg PO BID 08/09/19 11/06/20 Previous Rx's Medication Instructions Recorded duloxetine 30 mg capsule,delayed 30 mg PO QDAY #90 caps 04/03/18 release sodium,potassium,mag sulfates 17.5 177 ml PO DAILY 2 doses #354 mL 10/14/20 gram-3.13 gram-1.6 gram oral soln lidocaine 5 % topical patch 1 patch topical DAILY PRN back 10/26/21 (Lidoderm) pain #15 ea methocarbamol 500 mg tablet 500 mg PO BEDTIME PRN muscle spasm 10/26/21 #14 tabs Allergies Allergy/AdvReac Type Severity Reaction Status Date / Time No Known Drug Allergies Allergy Verified 10/26/21 15:51 Review of Systems <CECE Christy - Last Filed: 10/26/21 19:47> Review of Systems Narrative: General: denies fever, chills Head/Neck: denies headache, neck pain Eyes: denies visual changes, eye pain Cardio: denies chest pain, palpitations Respiratory: denies shortness of breath, cough GI: denies abdominal pain, nausea, vomiting, or diarrhea : denies dysuria, hematuria or flank pain MSK: denies new joint pain, muscle weakness or swelling, endorses left knee pain, low back pain with radiation down her left leg Skin: denies rash, itching or wound Neuro: denies numbness, tingling, dizziness Patient History <CECE Christy - Last Filed: 10/26/21 19:47> Medical History Polymyalgia rheumatica Surgical History History of blepharoplasty Status post appendectomy Status post bunionectomy Status post tonsillectomy and adenoidectomy Social History household members: spouse Smoking Status: Never smoker Smoking Status: Never smoker alcohol intake frequency: a few times a week Substance Use Type: does not use Exam <CECE Christy Last Filed: 10/26/21 19:47> Narrative Exam Narrative: Independently reviewed vitals signs and nursing notes. General: cooperative, comfortable, in no acute distress, well groomed Head: atraumatic, symmetrical facial expressions Neck: supple Eyes: equal round and reactive, EOMI, conjunctiva normal Nose: nares patent, no rhinorrhea Mouth/Throat: moist mucus membranes Cardiovascular: regular rate and rhythm, no peripheral edema, warm extremities Respiratory: normal effort, able to speak in complete sentences, no audible wheezing, stridor, or rales. No retractions or tachypnea. GI: abdomen soft, nontender to palpation, nondistended, no masses, no exquisite tenderness with exam, without guarding or rebound. MSK: moves all extremities, neurovascularly intact, no weakness, normal tone, no tenderness along lumbar spine, left knee with palpable Rubi cyst in the posterior aspect, no tenderness to palpation, no surrounding erythema no dependent edema in her lower extremities patient is ambulatory with steady gait and equal strength bilaterally, pain is exacerbated leg raise in supine position, no range of motion deficit. Skin: brisk capillary refill, no rash, no erythema Neuro: normal speech and cognition, A&O x3 Psych: mental status is grossly normal, congruent mood, normal affect, pleasant and cooperative Initial Vital Signs Initial Vital Signs: Vital Signs Temperature 96.4 F L 10/26/21 15:48 Pulse Rate 81 10/26/21 15:48 Respiratory Rate 16 10/26/21 15:48 Pulse Oximetry 98 10/26/21 15:48 Oxygen Delivery Method 10/26/21 15:48 <Lizzette Quintero DO - Last Filed: 10/28/21 19:12> Initial Vital Signs Initial Vital Signs: Vital Signs Temperature 96.4 F L 10/26/21 15:48 Pulse Rate 81 10/26/21 15:48 Respiratory Rate 16 10/26/21 15:48 Pulse Oximetry 98 10/26/21 15:48 Oxygen Delivery Method 10/26/21 15:48 Course <CECE Christy - Last Filed: 10/26/21 19:47> Orders Ordered: Discontinued Medications Acetaminophen (Acetaminophen 325 Mg Tablet) 650 mg PO NOW ONE Stop: 10/26/21 18:30 Last Admin: 10/26/21 18:39 Dose: 650 mg Documented By: NEELAM Lidocaine (Lidocaine Patch 1 Each Adh..Patch) 1 each TOP NOW ONE Stop: 10/26/21 18:30 Last Admin: 10/26/21 18:39 Dose: 1 each Documented By: NEELAM Naproxen (Naproxen 250 Mg Tablet) 250 mg PO NOW ONE Stop: 10/26/21 18:30 Last Admin: 10/26/21 18:56 Dose: Not Given Documented By: NEELAM Vital Signs Vital signs: Vital Signs - 8 hr 10/26/21 15:48 10/26/21 15:51 Temperature 96.4 F L Pulse Rate 81 Respiratory Rate 16 Blood Pressure 169/78 H Pulse Oximetry 98 Oxygen Delivery Method Room Air <Lizzette Quintero DO - Last Filed: 10/28/21 19:12> Orders Ordered: Discontinued Medications Acetaminophen (Acetaminophen 325 Mg Tablet) 650 mg PO NOW ONE Stop: 10/26/21 18:30 Last Admin: 10/26/21 18:39 Dose: 650 mg Documented By: NEELAM Lidocaine (Lidocaine Patch 1 Each Adh..Patch) 1 each TOP NOW ONE Stop: 10/26/21 18:30 Last Admin: 10/26/21 18:39 Dose: 1 each Documented By: NEELAM Naproxen (Naproxen 250 Mg Tablet) 250 mg PO NOW ONE Stop: 10/26/21 18:30 Last Admin: 10/26/21 18:56 Dose: Not Given Documented By: NEELAM Vital Signs Vital signs: Vital Signs - 8 hr 10/26/21 15:48 10/26/21 15:51 Temperature 96.4 F L Pulse Rate 81 Respiratory Rate 16 Blood Pressure 169/78 H Pulse Oximetry 98 Oxygen Delivery Method Room Air MDM - Extremity (Nontraumatic) <CECE Christy - Last Filed: 10/26/21 19:47> Imaging Data US - DVT: Radiologist's Impression: PROCEDURE:? US PERIPH VENOUS LOW EXTREM LT ? INDICATIONS:? r/o DVT left leg swelling, pain. Recent flight ? TECHNIQUE:? Real-time imaging, as well as color and pulse Doppler interrogation, were performed of the lower extremity deep veins from the inguinal ligament to the popliteal fossa.? ? COMPARISON:? None. ? FINDINGS:? The common femoral, femoral and popliteal veins are normally compressible, and free of intraluminal thrombus.? Color and pulse Doppler demonstrate normal phasic intraluminal flow.? There is normal augmentation response to distal compression maneuver. ? ? Popliteal fossa collection measuring 5.7 x 2.2 x 1.5 cm. ? IMPRESSION:? No left lower extremity DVT. ? Left Rubi's cyst measuring 5.7 cm. ? ? Dictated by: Greg Echavarria M.D. on 10/26/2021 at 17:37 ? ? Approved by: Greg Echavarria M.D. on 10/26/2021 at 17:38 ? MDM Narrative Medical decision making narrative: This is a 76-year-old female presents to the emergency department with concern about her anterior left knee pain, left hip pain, and endorses having chronic low back pain history of scoliosis and degenerative disc disease. She endorses having osteoarthritis in all of her joints, history of fibromyalgia and has steroid injections in her low back and left knee in the past which she said has been helpful. Patient endorses a full on October 04, she has had follow-up for her left knee pain in [place] for this but has not been seen for exacerbation of her low back pain with now sciatica symptoms down her left leg. She denies any incontinence, any new weakness, she endorses a history of memory loss but denies any new changes to her mentation. She has been taking Tylenol and naproxen as needed for her pain, states this has been helpful. She is interested in steroid injection of her low back and potentially her left knee, she has tenderness over her left patellar tendon without any obvious joint effusion or instability sensation. She states that her orthopedist thought she needed a total knee replacement and she states that she is nursing it along. Patient is quite active at baseline, she came to the emergency department for concern about a blood clot due to swelling in her left lower extremity. A vascular ultrasound was completed, she does not have any dependent edema and her ultrasound showed no left lower extremity DVT, a left Rubi cyst measuring 5.7 cm. It is palpable but nontender to palpation, there is no surrounding erythema or signs of infection. Her hip x-ray from 09/27/2021 shows bilateral osteoarthritis without fracture, this was after her fall the month prior but not after this fall. Patient takes Lyrica at baseline for her polymyalgia rheumatica and fibromyalgia. Lumbar x-ray today shows no acute abnormality, mild dextroconvex curvature of the lumbar spine, mild grade 1 anterolisthesis of L4 on L5 measuring 3 mm, no vertebral body compression fractures, multilevel disc space narrowing and degenerative endplate changes seen and most prominent at L3-4 with multilevel facet hypertrophy. Multiple etiologies of back pain considered including; Epidural abscess, cauda equina, mass occupying lesion, lumbar fracture, intra-abdominal pathology chronic neuropathic pain and other considered. Patient is ambulatory, encouraged her to use a walker to help prevent falls, she was prescribed muscle relaxers, encouraged her to use these only at bedtime to prevent falls. Encouraged her to use lidocaine patches and Voltaren gel for her left knee and her low back, encouraged ice or heat whichever feels better, activity as tolerated, naproxen and Tylenol as needed for pain, she uses Cymbalta and Lyrica at baseline for her polymyalgia rheumatica and fibromyalgia. Encouraged her to follow-up with her primary care provider for a physical therapy referral, she may benefit from steroid injections of her left knee and her lower back as well. Patient is appropriate and amenable to discharge home. Vital signs are stable on repeat examination is unremarkable. Patient has been informed of results. Patient has been given strict return to ER precautions for any new or worsening symptoms. Patient understands to follow up closely with outpatient providers as instructed. Patient understands plan and agrees to discharge home. All questions and concerns answered at this time. Discharge Plan Departure Patient Disposition: Home Clinical Impression: Acute radicular low back pain, Multilevel spondylosis, Anterolisthesis of lumbar spine Osteoarthritis of hips, bilateral Qualifiers: Osteoarthritis type: primary Qualified Code(s): M16.0 - Bilateral primary osteoarthritis of hip Instructions: Osteoarthritis, DI for Back Pain With Sciatica, DI for Lumbar Radiculopathy Activity Restrictions/Additional Instructions: *You have been diagnosed with osteoarthritis of your hips, low back pain with radiation to your left leg called sciatica. Your lumbar x-ray shows degenerative changes and multilevel disc space narrowing and hypertrophy consistent with arthrosis. It does not show any acute fracture, compression fractures, or acute abnormality. Your ultrasound does not show any DVT, this is great news, it does show an enlarged Rubi's cyst which could be swollen related to your arthritis. Please use your Voltaren gel topically around her knee and your low back 3-4 times daily. You can use Tylenol 650 mg every 6 hours as needed for pain, take naproxen morning and night in addition to this with food and water. Apply lidocaine patch if it is helpful, otherwise use your Voltaren gel. Please use heat, ice, whichever is helpful for your symptoms at the time. Follow-up with your primary care provider and ask for a referral to physical therapy, and you may call Dr. Garcia and see if you can follow-up with him for a potential joint injection of your left knee and or your low back. Because you have polymyalgia rheumatica and fibromyalgia, please discuss pain management with your prescriber and how she wishes to help you with this. I am glad you are on Lyrica and Cymbalta, this is helpful for your sciatica. For the arthritis pain, use the antiinflammatories- both topically and orally. I have given you some muscle relaxers which she can take before bed but do not drive with them or try and get on a plane. ;) I encourage you to follow-up with Dr. Garcia, [facility], or your primary care provider for a plan of management which main include injectable steroids, physical therapy, or medication adjustments. Please consider using a walker while you are having this back pain to help prevent falling. *What to do: *Please continue to take your regular medications as directed. [ x] New medication prescriptions sent to your pharmacy: [[facility] ] [ ] New medication written as a paper prescription [ ] No new medications given *Please follow up with your primary care provider in 2-3 days, call for an appointment. Let them know you were seen in the Emergency Department and that we asked that you be seen for follow-up. We will electronically transmit a record of today's note if your PCP is in our system *If you do not have a primary care provider please contact [phone] to establish care with one of [facility] primary care providers. *Return to Emergency Department if you should have any new, worsening or concerning symptoms, such as [fever greater than 101F, chills, worsening pain, persistent vomiting or other bothersome symptoms] Prescriptions: New methocarbamol 500 mg tablet 500 mg PO BEDTIME PRN (Reason: muscle spasm) Qty: 14 0RF lidocaine [Lidoderm] 5 % adhesive patch,medicated 1 patch topical DAILY PRN (Reason: back pain) Qty: 15 0RF Rx Instructions: leave on most painful area for up to 12 hrs No Action calcium carbonate 600 mg calcium (1,500 mg) tablet 600 mg PO DAILY cholecalciferol (vitamin D3) 2,000 unit capsule 2,000 unit PO DAILY duloxetine 30 mg capsule,delayed release(DR/EC) 30 mg PO QDAY Qty: 90 1RF metformin 500 mg Tablet Extended Release 24 Hr 1,000 mg PO BID Qty: 0 Coenzyme Q10 (#CO Q-10) 50 mg PO QID Qty: 0 Calcium/Vitamin D (#CITRACAL + D 315 MG-200 IU) 1 tab PO Q DAY Qty: 0 cyanocobalamin (vitamin B-12) 1,000 MCG tablet extended release 1,000 mcg PO Qty: 0 pramipexole [Mirapex] 0.25 MG tablet 0.25 mg PO HS Qty: 0 pregabalin [Lyrica] 75 MG capsule 75 mg PO DAILY Qty: 0 pravastatin 40 MG tablet 40 mg PO HS Qty: 0 sodium,potassium,mag sulfates 17.5-3.13-1.6 gram recon soln 177 ml PO DAILY Qty: 354 0RF Rx Instructions: Please take medication per [facility] written instructions. TUMERIC PO triamcinolone acetonide 0.1 % cream 1 applictn TOP DAILY losartan 25 mg tablet 25 mg PO BID Referrals: [facility] [Provider Group] Brayden Garcia DO [Physician] - Joi Acuna PA-C [Primary Care Provider] - Visit Report Forms: Patient Portal/API <Lizzette Quintero DO - Last Filed: 10/28/21 19:12> Cosign ED Attending Larry Attestation: I was immediately available in the department for consultation. Documentation has been reviewed. I agree with assessment and plan.
[2021-10-26] MEDS: ACETAMINOPHEN 325 MG TABLET 650 MG PO (18:39)
[2021-10-26] MEDS: LIDOCAINE PATCH 1 EACH ADH..PATCH TOP (18:39)
[2021-10-26 19:56] VITALS: BP 161/78; PULSE 68; RESP 18; O2SAT 99
== END 2021-10-26 19:57 | disposition home or self-care (01) ==
PROVIDERS: Emergency Provider Nurse Practitioner Critical Care Medicine; PCP Student in an Organized Health Care Education/Training Program
DX: M54.50 Low back pain, unspecified (principal); M47.26 Other spondylosis with radiculopathy, lumbar region; M48.061 Spinal stenosis, lumbar region without neurogenic claudication; M16.0 Bilateral primary osteoarthritis of hip
CPT/HCPCS: 72100; 93971; 99283

== ENCOUNTER → 2021-12-01 09:14 | Outpatient (CLI) | payer MEDICARE, OTHER, SELFPAY ==
--- NOTE | 2021-12-01 09:19 | DI.CT.S_ITS ---
PROCEDURE: CT PEL WO CON INDICATIONS: History of falling, pain in left hip TECHNIQUE: Noncontrast 3 mm axial sections acquired through the bony pelvis, with coronal and sagittal reformatting. COMPARISON: None. FINDINGS: Image quality: Excellent. Bones: Pelvic ring is intact. No acute pelvic or hip fracture. No hip dislocation. Moderate left worse than right bilateral hip joint osteoarthritic changes are seen with joint space narrowing, subchondral sclerosis and marginal osteophyte formation. No evidence of avascular necrosis of femoral head. Osteoarthritic changes also noted in bilateral sacroiliac joints and symphysis pubis. Degenerative disc disease in visualized lower lumbar spine is seen, no gross acute compression fracture. No suspicious intraosseous lesion. Soft tissues: There is no pelvic free fluid or free air. Bowel wall thickness is normal. Bladder wall thickness is normal. No pelvic lymphadenopathy by size criteria. No significant joint effusion is seen. No gross intra-articular loose bodies. No gross muscle or soft tissue abnormality is seen in pelvis and bilateral hip. IMPRESSION: 1. No acute pelvic or hip fracture. No hip dislocation. Left worse than right bilateral hip joint osteoarthritis. No evidence of avascular necrosis of femoral head. 2. Osteoarthritic changes also seen in bilateral sacroiliac joints and symphysis pubis. Degenerative disc disease in lower lumbar spine. 3. No gross pelvic or hip soft tissue abnormalities. Dictated by: Nikos Maxwell M.D. on 12/01/2021 at 11:44 Approved by: Nikos Maxwell M.D. on 12/01/2021 at 11:46
== END ==
PROVIDERS: PCP Student in an Organized Health Care Education/Training Program; Referring Provider Student in an Organized Health Care Education/Training Program; Visit Provider Student in an Organized Health Care Education/Training Program
DX: M51.36 Other intervertebral disc degeneration, lumbar region (principal); M16.0 Bilateral primary osteoarthritis of hip; M25.552 Pain in left hip
CPT/HCPCS: 72192

== ENCOUNTER → 2021-12-07 12:11 | Outpatient (CLI) | payer MEDICARE, OTHER, SELFPAY | PROVIDERS: PCP Student in an Organized Health Care Education/Training Program; Referring Provider Student in an Organized Health Care Education/Training Program; Visit Provider Student in an Organized Health Care Education/Training Program | DX: Z13.820 Encounter for screening for osteoporosis (principal); Z78.0 Asymptomatic menopausal state; Z87.311 Personal history of (healed) other pathological fracture; Z92.23 Personal history of estrogen therapy; Z92.241 Personal history of systemic steroid therapy | CPT/HCPCS: 77080 ==

== ENCOUNTER → 2022-02-08 14:36 | Outpatient (CLI) | payer MEDICARE, OTHER, SELFPAY ==
[2022-02-08 16:33] LABS: Hemoglobin A1C% w Est Avg Glu 6.7 % (4.0-6.0)
== END ==
PROVIDERS: PCP Student in an Organized Health Care Education/Training Program; Referring Provider Student in an Organized Health Care Education/Training Program; Visit Provider Student in an Organized Health Care Education/Training Program
DX: E11.40 Type 2 diabetes mellitus with diabetic neuropathy, unspecified (principal)
CPT/HCPCS: 36415; 83036

== ENCOUNTER → 2022-03-12 14:47 | Outpatient (CLI) | payer MEDICARE, OTHER, SELFPAY ==
--- NOTE | 2022-03-12 14:48 | DI.MG.S_ITS ---
BILATERAL DIGITAL SCREENING MAMMOGRAM 3D/2D WITH CAD: 03/12/2022 CLINICAL: Routine screening. Comparison is made to exams dated: 03/25/2020 mammogram, 11/11/2016 mammogram, and 11/06/2015 mammogram - [facility]. There are scattered areas of fibroglandular density in both breasts (category b / 25%-50% glandular tissue). Current study was also evaluated with a Computer Aided Detection (CAD) system. There are benign vascular calcifications in the right breast. No significant masses, calcifications, or other findings are seen in either breast. There has been no significant interval change. IMPRESSION: BENIGN There is no mammographic evidence of malignancy. A 1 year screening mammogram is recommended. Based on the Tyrer Cuzick model (a risk assessment model) the patient's lifetime risk is 2.2% and her 10 year risk is 0.0%. According to the ACR, ACS, and NCCN guidelines, an annual breast MRI exam along with mammogram is recommended if the patient's lifetime risk is 20% or greater. This exam was interpreted at Station ID: [id number]. NOTE: For mammograms, a report in lay terms will be sent to the patient. Approximately 15% of breast malignancies will not be visualized mammographically. In the management of a palpable breast mass, a negative mammogram must not discourage biopsy of a clinically suspicious lesion. Electronically Signed By: Greg iniguez/tay:03/14/2022 09:34:18 copy to: Brayden Stuart letter sent: Normal Exam ACR BI-RADS Category 2: Benign Finding(s) [id number]
== END ==
PROVIDERS: PCP Student in an Organized Health Care Education/Training Program; Referring Provider Student in an Organized Health Care Education/Training Program; Visit Provider Student in an Organized Health Care Education/Training Program
DX: Z12.31 Encounter for screening mammogram for malignant neoplasm of breast (principal)
CPT/HCPCS: 77063; 77067

== ENCOUNTER → 2022-08-17 16:34 | Outpatient (CLI) | payer MEDICARE, OTHER, SELFPAY ==
[2022-08-17 17:32] LABS: Add Manual Diff / Slide Review NO; Basophils Absolute Auto 100 /uL (0-100); Eosinophils Absolute Auto 100 /uL (0-450); Eosinophils Percent Auto 1.7 % (2-4); Hematocrit 39.2 % (36-46); Hemoglobin 13.3 g/dL (12.0-16.0); Lymphocytes Absolute Auto 3000 /uL (1100-4500); Lymphocytes Percent Auto 40.9 % (25-40); Mean Corpuscular HGB Conc 34.1 % (30-36); Mean Corpuscular Hemoglobin 30.2 PG (26-34); Mean Corpuscular Volume 88.7 fL (80-100); Monocytes Absolute Auto 500 /uL (0-900); Neutrophils Absolute Auto 3600 /uL (1500-7000); Neutrophils Percent Auto 49.4 % (50-75); Platelet Count 303 X10^3/uL (150-400); Red Blood Cell Count 4.41 X10^6/uL (4.0-5.2); Red Cell Distribution Width 13.6 % (11.6-14.8); White Blood Cell Count 7.3 X10^3/uL (4.5-11.0)
[2022-08-17 17:49] LABS: Erythrocyte Sedimentation Rate 9 MM/HR (0-20)
[2022-08-17 18:25] LABS: Alanine Aminotransferase 18 IU/L (<35); Albumin 4.4 g/dL (3.5-5.0); Albumin Globulin Ratio 1.9 (1.0-2.8); Alkaline Phosphatase 59 U/L (38-126); Aspartate Aminotransferase 25 IU/L (14-36); Bilirubin Total 0.3 mg/dL (0.2-1.3); Blood Urea Nitrogen 19 mg/dL (7-17); C-Reactive Protein Quant 0.7 mg/dL (<1.0); Calcium 9.4 mg/dL (8.4-10.2); Carbon Dioxide 29 mmol/L (22-32); Chloride 100 mmol/L (98-107); Estimated Glomerular Filt Rate > 60 mL/min (>60); Globulin 2.3 g/dL (1.7-4.1); Glucose 113 mg/dL (80-110); HEMOLYSIS < 15 (0-50); Potassium 4.4 mmol/L (3.4-5.1); Sodium 137 mmol/L (137-145); Total Protein 6.7 g/dL (6.3-8.2)
== END ==
PROVIDERS: PCP Student in an Organized Health Care Education/Training Program; Referring Provider Internal Medicine Rheumatology; Visit Provider Internal Medicine Rheumatology
DX: M35.3 Polymyalgia rheumatica (principal); Z79.899 Other long term (current) drug therapy
CPT/HCPCS: 36415; 80053; 85025; 85651; 86140

== ENCOUNTER → 2023-04-04 17:25 | Outpatient (CLI) | payer MEDICARE, OTHER, SELFPAY ==
--- NOTE | 2023-04-04 | DI.MG.S_ITS ---
BILATERAL DIGITAL SCREENING MAMMOGRAM 3D/2D WITH CAD: 04/04/2023 CLINICAL: Routine screening. Comparison is made to exams dated: 03/12/2022 mammogram, 03/25/2020 mammogram, and 11/11/2016 mammogram - [facility]. There are scattered areas of fibroglandular density in both breasts (category b / 25%-50% glandular tissue). Current study was also evaluated with a Computer Aided Detection (CAD) system. There are benign calcifications in the left breast. There also are benign vascular calcifications in the right breast. No significant masses, calcifications, or other findings are seen in either breast. There has been no significant interval change. IMPRESSION: BENIGN There is no mammographic evidence of malignancy. A 1 year screening mammogram is recommended. Based on the Tyrer Cuzick model (a risk assessment model) the patient's lifetime risk is 1.9% and her 10 year risk is 0.0%. According to the ACR, ACS, and NCCN guidelines, an annual breast MRI exam along with mammogram is recommended if the patient's lifetime risk is 20% or greater. This exam was interpreted at Station ID: [id number]. NOTE: For mammograms, a report in lay terms will be sent to the patient. Approximately 15% of breast malignancies will not be visualized mammographically. In the management of a palpable breast mass, a negative mammogram must not discourage biopsy of a clinically suspicious lesion. Electronically Signed By: Cee garay/tay:04/05/2023 14:24:54 copy to: Brayden Stuart letter sent: Normal Exam ACR BI-RADS Category 2: Benign Finding(s) [id number]
== END ==
PROVIDERS: PCP Student in an Organized Health Care Education/Training Program; Referring Provider Student in an Organized Health Care Education/Training Program; Visit Provider Student in an Organized Health Care Education/Training Program
DX: Z12.31 Encounter for screening mammogram for malignant neoplasm of breast (principal)
CPT/HCPCS: 77063; 77067

== ENCOUNTER → 2023-07-18 15:12 | Outpatient (CLI) | payer MEDICARE, OTHER, SELFPAY ==
[2023-07-18 16:07] LABS: Influenza A - CEPHEID Flu A NEGATIVE (NEGATIVE); Influenza B - CEPHEID Flu B NEGATIVE (NEGATIVE); Respiratory Syncytial Virus Negative (Negative)
[2023-07-18 16:16] LABS: COVID-19 CEPHEID 4-PLEX PCR Negative (Negative)
== END ==
PROVIDERS: PCP Student in an Organized Health Care Education/Training Program; Visit Provider Student in an Organized Health Care Education/Training Program
DX: R05.9 Cough, unspecified (principal)
CPT/HCPCS: 0241U

== ENCOUNTER → 2023-07-18 16:18 | Outpatient (CLI) | payer MEDICARE, OTHER, SELFPAY ==
--- NOTE | 2023-07-18 16:23 | DI.RAD.S_ITS ---
PROCEDURE: XR CHEST 2V INDICATIONS: cough x 12 days TECHNIQUE: 2 views of the chest were acquired. COMPARISON: None. FINDINGS: Surgical changes and devices: None. Lungs and pleura: Lungs are clear. No pleural effusions or pneumothorax. Mediastinum: Mediastinal contours are normal. Heart size is normal. Bones and chest wall: No suspicious bony abnormalities. Soft tissues appear unremarkable. IMPRESSION: No acute cardiopulmonary abnormality is seen. Dictated by: Mona Mims M.D. on 07/18/2023 at 16:53 Approved by: Mona Mims M.D. on 07/18/2023 at 16:54
== END ==
PROVIDERS: PCP Student in an Organized Health Care Education/Training Program; Referring Provider Student in an Organized Health Care Education/Training Program; Visit Provider Student in an Organized Health Care Education/Training Program
DX: R05.8 Other specified cough (principal)
CPT/HCPCS: 0241U; 71046

== ENCOUNTER 2023-08-03 09:48 | Observation (INO) | payer MEDICARE, OTHER, SELFPAY ==
[2023-08-03] VITALS (12 sets, daily range): BP systolic 130–188; BP diastolic 66–92; PULSE 64–80; RESP 16–28; TEMP 36.1–36.6; O2SAT 95–100; BMI 25.0; BMI 26.3
--- NOTE | 2023-08-03 10:02 | DI.RAD.S_ITS ---
PROCEDURE: XR CHEST 1V INDICATIONS: Possible stroke TECHNIQUE: One view of the chest was acquired. COMPARISON: [facility], CR, XR CHEST 2V, 07/18/2023, 16:33. FINDINGS: Surgical changes and devices: None. Lungs and pleura: Lungs are clear. No pleural effusions or pneumothorax. Mediastinum: Mediastinal contours appear normal. Heart size is normal. Bones and chest wall: No suspicious bony lesions. Overlying soft tissues appear unremarkable. IMPRESSION: No acute cardiopulmonary abnormality is seen. Dictated by: Angel Shane M.D. on 08/03/2023 at 10:46 Approved by: Angel Shane M.D. on 08/03/2023 at 10:46
--- NOTE | 2023-08-03 10:02 | DI.CT.S_ITS ---
PROCEDURE: CT STROKE INDICATIONS: Positive BE-FAST, Stroke symptoms TECHNIQUE: Noncontrast 4.5 mm thick angled axial sections acquired from the foramen magnum to the vertex, with coronal reformats. For radiation dose reduction, the following was used: automated exposure control, adjustment of mA and/or kV according to patient size. COMPARISON: None. FINDINGS: Image quality: Diagnostic. CSF spaces: Basal cisterns are patent. No extra-axial fluid collections. The ventricles are symmetric in size and shape. Brain: No intracranial bleeds or masses. There is cerebral volume loss for age, with resultant ventricular and sulcal prominence. There are periventricular and deep white matter chronic small vessel ischemic changes. There is intracranial internal carotid artery atherosclerosis. Skull and face: Calvarium and visualized facial bones appear intact, without suspicious lesions. Lens replacements. Sinuses: Paranasal sinuses are clear. Right mastoid effusion. IMPRESSION: No acute intracranial pathology. Findings discussed with Dr. Iyer at 10:17 a.m. On 08/03/2023. This study fulfills neurological imaging criteria for inclusion or exclusion of acute stroke therapies based on available published neurological guidelines. Dictated by: Alex Steward M.D. on 08/03/2023 at 10:15 Approved by: Alex Steward M.D. on 08/03/2023 at 10:19
--- NOTE | 2023-08-03 10:04 | DI.CT.S_ITS ---
PROCEDURE: CT ANGIO HEAD AND NECK INDICATIONS: expressive aphasia TECHNIQUE: After the administration of intravenous contrast, 1 mm thick sections acquired from the aortic arch through the [place] of [place]. 3-dimensional tufqwft-adgwskwbg-hfcigcsyge (MIP) and/or volume rendering reformats were acquired of the central intracranial vasculature and neck separately. For radiation dose reduction, the following was used: automated exposure control, adjustment of mA and/or kV according to patient size. COMPARISON: [facility], CT, CT STROKE, 08/03/2023, 10:06. FINDINGS: Image quality: Diagnostic. BRAIN: CSF spaces: Ventricles are normal in size and shape. Basal cisterns are patent. No extra-axial fluid collections. Brain: No significant abnormality of the brain can be seen. Skull and face: Calvarium and facial bones appear intact, without suspicious lesions. Orbits appear normal. Sinuses: Sinuses and mastoids are clear. HEAD CT ANGIOGRAPHY: Anterior circulation: Intracranial internal carotid arteries are normal in size and flow. The flow within the paired anterior cerebral arteries is normal and symmetric. The flow within the middle cerebral arteries is normal and symmetric. The anterior communicating artery is seen. No aneurysms are seen. Posterior circulation: Normal variant diminutive V4 segment of right vertebral artery. Dominant patent left vertebral artery. They join to form a normal appearing basilar artery. Flow within the posterior cerebral arteries is normal and symmetric. No aneurysms are seen. NECK CT ANGIOGRAPHY: Carotid system: The great vessels demonstrate a conventional anatomy as they arise from the aortic arch. The origins of the common carotid arteries appear patent. The common carotid arteries demonstrate normal caliber and courses. The bifurcation regions are both widely patent. Bilateral less than 50% calcified stenosis of the proximal internal carotid arteries. Posterior circulation: Incidental note made of severe tortuosity of the proximal left vertebral artery. The left vertebral artery is dominant. The right vertebral artery is normal variant diminutive and markedly diminutive in the V4 segment. They join to form a normal appearing basilar artery. Soft tissues: Visualized neck soft tissues demonstrate no suspicious abnormalities. Bones: Extensive cervical spondylitic change. Diffuse osteopenia. Patchy sclerotic areas in all cervical vertebral bodies. IMPRESSION: 1. No significant intracranial arterial abnormality is seen. 2. Bilateral less than 50% mild internal carotid artery stenosis. 3. Extensive cervical spondylosis, osteopenia. 4. Patchy sclerotic appearance of all cervical vertebral bodies, nonspecific. However, cannot exclude sclerotic bony metastatic disease. Comment: Consider CT chest through pelvis on a nonemergent bases, which would via better indicator as to whether not there is suspicious bony disease. Any quantitative measurements of stenosis were performed using NASCET criteria. Dictated by: Angel Shane M.D. on 08/03/2023 at 10:30 Approved by: Angel Shane M.D. on 08/03/2023 at 10:38
--- NOTE | 2023-08-03 10:08 | ED_ITS ---
HPI - Neuro Symptoms/Deficit General Chief Complaint: Neuro Symptoms/Deficit Stated Complaint: worried she had TIA Time Seen by Provider: 08/03/23 10:00 Source: patient, family (), RN notes reviewed and old records reviewed Mode of arrival: Ambulatory Limitations: no limitations History of Present Illness HPI Narrative: 77-year-old female with history of diabetes type 2 hypertension, polymyalgia rheumatica without steroids for several years, restless leg presents with concern for stroke. Patient was acting normally this morning at about 9:00 a.m. in the morning her and she realized she was having trouble using her laptop and she approached him for help. He states she seemed very confused and had trouble getting her words out. Upon arrival her speech seems to have improved. Has been states she seems to be back more to her baseline. They note that she recently had an infection upper respiratory that they both had they been recovering that for a couple weeks. She has been complaining of some headaches lately, she has not had any difficulty with speech before this. Patient denies any headache, denies any chest pain or shortness of breath, no nausea or vomiting no other GI or urinary symptoms currently. She denies any vision changes. She states her speech seems improved. She denies any numbness tingling or weakness of her extremities that is new. Denies any loss of bowel or bladder control. No syncope or loss of consciousness. Patient is not on any anticoagulation. She has not had similar symptoms in the past. Patient recently saw her primary care on July 30 and was told her labs were appropriate at that time. They did state her sodium was a little low. Patient states she has had prior orthopedic surgeries. No known drug allergies. No regular tobacco, alcohol or recreational drugs. She is accompanied by her who was present with her when this occurred. Joi Acuna is her primary care provider. On Anticoagulants: No Related Data Home Medications Medication Instructions Recorded Confirmed Calcium/Vitamin D (#CITRACAL + D 1 tab PO DAILY ##0 11/18/11 08/03/23 315 MG-200 IU) Coenzyme Q10 (#CO Q-10) 50 mg PO DAILY ##0 11/18/11 08/03/23 metformin 500 mg tablet,extended 1,000 mg PO BID ##0 11/18/11 08/03/23 release 24 hr cyanocobalamin (vitamin B-12) 1,000 mcg PO DAILY ##0 11/23/15 08/03/23 1,000 mcg tablet,extended release pramipexole 0.25 mg tablet 0.25 mg PO BEDTIME #0 tabs 12/10/15 08/03/23 (Mirapex) pregabalin 75 mg capsule (Lyrica) 75 mg PO BID #0 caps 01/06/16 08/03/23 pravastatin 40 mg tablet 40 mg PO BEDTIME ##0 03/08/16 08/03/23 triamcinolone acetonide 0.1 % 1 applic topical DAILY PRN Itching 09/19/17 08/03/23 topical cream losartan 25 mg tablet 50 mg PO BID 08/09/19 08/03/23 duloxetine 60 mg capsule,delayed 60 mg PO BEDTIME 08/03/23 08/03/23 release omeprazole 20 mg capsule,delayed 20 mg PO BIDAC 08/03/23 08/03/23 release ondansetron 4 mg disintegrating 4 mg PO BID PRN Nausea And Vomiting 08/03/23 08/03/23 tablet Previous Rx's Medication Instructions Recorded lidocaine 5 % topical patch 1 patch topical DAILY PRN back 10/26/21 (Lidoderm) pain #15 ea methocarbamol 500 mg tablet 500 mg PO BEDTIME PRN muscle spasm 10/26/21 #14 tabs aspirin 81 mg tablet,delayed 81 mg PO DAILY #30 tabs 08/03/23 release levofloxacin 750 mg tablet 750 mg PO DAILY 6 days #6 tabs 08/03/23 Allergies Allergy/AdvReac Type Severity Reaction Status Date / Time No Known Drug Allergies Allergy Verified 07/18/23 15:10 Review of Systems Review of Systems ROS Unobtainable: All systems reviewed & are unremarkable except as noted in HPI and below Hematologic/Lymphatic On Anticoagulants: No Patient History Medical History Polymyalgia rheumatica Surgical History History of blepharoplasty Status post tonsillectomy and adenoidectomy Status post bunionectomy Status post appendectomy Social History household members: spouse Smoking Status: Never smoker alcohol intake: current Smoking Status: Never smoker alcohol intake frequency: a few times a week Substance Use Type: does not use Exam Narrative Exam Narrative: GEN: well nourished, well appearing female, alert and oriented x3, patient appears to be in mild distress. HEENT: Atraumatic, pupils are equal round reactive to light, extraocular movements are intact, nares are clear, TMs are clear with no fluid, there is no conjunctival pallor. Throat is clear without any exudates, erythema, tonsillar enlargement or uvular deviation, no facial droop. HEART: Regular rate and rhythm without murmur, clicks, rubs. Pulses are equal in upper and lower extremities LUNGS:Lungs clear to auscultation, no wheezes, rales, crackles, chest moves symmetrically ABD:bowel sounds normal, soft, non-tender, no guarding, rebound, rigidity, no masses noted, no hepatosplenomegaly :No CVA tenderness MSCL: Non-tender, no muscle atrophy, muscles strength 5/5 upper and lower extremities, full range of motion, normal gait NEURO:CN 2-12 intact, sensation normal, finger nose finger test normal, heel wong test normal, patient has very mild dysarthria/aphasia having difficulty with the words saw feeder in the last sentence on the NIH cards Initial Vital Signs Initial Vital Signs: Vital Signs Pulse Rate 74 08/03/23 09:54 Blood Pressure 188/83 H 08/03/23 09:54 Pulse Oximetry 98 08/03/23 09:54 Oxygen Delivery Method Room Air 08/03/23 09:54 Scores NIH Stroke Scale Level of Conciousness: Alert, keenly responsive Ask month/age: Answers both questions correctly. Open/close eyes, close hand: Performs both tasks correctly Best gaze horizontal: Normal Visual iqbal: No visual loss Facial palsy: Normal symetrical movement Left arm drift: No drift for full 10 sec Right arm drift: No drift for full 10 sec Left leg drift: No drift for full 5 sec Right leg drift: No drift for full 5 sec Limb ataxia: Absent Sensory on face/arms/legs: Normal, no sensory loss Best language: No aphasia, normal Dysarthria: Mild to mod,some slurring Extinction or inattention: No abnormality Total NIH Stroke scale score: 1 Course Orders Ordered: ED Orders 08/03/23 09:59 Complete Blood Count AUTO DIFF Stat Comprehensive Metabolic Panel Stat Magnesium Stat PTT Partial Thromboplastin John Stat Prothrombin Time INR Stat Troponin & CK Cardiac Panel Stat 08/03/23 10:02 CT Stroke Stat XR chest 1V Stat EKG-12 Lead Stat 08/03/23 10:04 CT angio head and neck Stat Discontinued Medications Acetaminophen (Acetaminophen 325 Mg Tablet) 650 mg PO Q6H PRN PRN Reason: Fever/Mild Pain (1-3) Aspirin (Aspirin 81 Mg Chew Tab) 324 mg PO NOW ONE Stop: 08/03/23 10:39 Last Admin: 08/03/23 11:15 Dose: 324 mg Documented By: ARVIND Aspirin (Aspirin Ec 81 Mg Tablet) 81 mg PO DAILY [facility] Atorvastatin Calcium (Atorvastatin 20 Mg Tablet) 40 mg PO BEDTIME [facility] Duloxetine HCl (Duloxetine 30 Mg Capsule) 60 mg PO DAILY [facility] Enoxaparin Sodium (Enoxaparin 40 Mg/0.4 Ml Syringe) 40 mg SUBCUT DAILY [facility] Last Admin: 08/03/23 13:39 Dose: 40 mg Documented By: SHAYNE Sodium Chloride (Normal Saline 0.9%) 1,000 mls @ 150 mls/hr IV CONT [facility] Last Admin: 08/03/23 11:16 Dose: 150 mls/hr Documented By: ARVIND Labetalol HCl (Labetalol 20 Mg/4 Ml Syringe) 10 mg IV Q10MIN PRN PRN Reason: SBP>= 180 or DBP >=110 Levofloxacin (Levofloxacin 250 Mg Tablet) 750 mg PO 0700 [facility] Last Admin: 08/03/23 16:15 Dose: 750 mg Documented By: SHAYNE Levofloxacin (Levofloxacin 250 Mg Tablet) 750 mg PO Q48H [facility] Melatonin (Melatonin 3 Mg Tablet) 6 mg PO BEDTIME PRN PRN Reason: Insomnia Naloxone HCl (Naloxone 0.4 Mg/Ml Vial) 0.2 mg IV Q2MIN PRN PRN Reason: Opiate Reversal Ondansetron HCl (Ondansetron 4 Mg/2 Ml Inj) 4 mg IV NOW PRN PRN Reason: Nausea And Vomiting Ondansetron HCl (Ondansetron 4 Mg Odt) 4 mg SL NOW PRN PRN Reason: Nausea And Vomiting Ondansetron HCl (Ondansetron 4 Mg/2 Ml Inj) 4 mg IV Q4HR PRN PRN Reason: Nausea And Vomiting Polyethylene Glycol (Polyethylene Glycol 3350 17 Gm Powd.Pack) 17 gm PO DAILY PRN PRN Reason: Constipation Pramipexole Dihydrochloride (Pramipexole 0.25 Mg Tablet) 0.25 mg PO BEDTIME TOBIAS Pravastatin Sodium (Pravastatin 20 Mg Tablet) 40 mg PO BEDTIME TOBIAS Pregabalin (Pregabalin 75 Mg Capsule) 75 mg PO BID TOBIAS Sennosides (Sennosides 8.6 Mg Tablet) 8.6 mg PO BID PRN PRN Reason: Constipation Vital Signs Vital signs: Vital Signs - 8 hr 08/03/23 10:11 08/03/23 10:11 08/03/23 10:30 Pulse Rate 80 69 Respiratory Rate 21 28 H Blood Pressure 139/91 H Pulse Oximetry 100 100 Oxygen Delivery Method Room Air 08/03/23 11:00 08/03/23 11:00 08/03/23 11:30 Pulse Rate 76 74 Respiratory Rate 24 Blood Pressure 137/66 Pulse Oximetry 95 96 Oxygen Delivery Method 08/03/23 11:31 08/03/23 11:31 Pulse Rate 73 Respiratory Rate 25 H Blood Pressure 167/83 H Pulse Oximetry 96 Oxygen Delivery Method MDM - Neuro Symptoms/Deficit Lab Data 08/03/23 09:59 08/03/23 09:59 Labs: Lab Results 08/03/23 Range/Units 09:59 WBC 11.4 H (4.5-11.0) X10^3/uL RBC 4.53 (4.0-5.2) X10^6/uL Hgb 13.6 (12.0-16.0) g/dL Hct 41.5 (36-46) % MCV 91.6 (80-100) fL MCH 30.0 (26-34) PG MCHC 32.8 (30-36) % RDW 14.0 (11.6-14.8) % Plt Count 293 (150-400) X10^3/uL Neut % (Auto) 45.1 L (50-75) % Lymph % (Auto) 46.4 H (25-40) % Terry % (Auto) 5.3 (3-14) % Eos % (Auto) 1.9 L (2-4) % Baso % (Auto) 1.3 (0-2) % Neut # (Auto) 5200 (4880-6480) /uL Lymph # (Auto) 5300 H (0753-5896) /uL Terry # (Auto) 600 (0-900) /uL Eos # (Auto) 200 (0-450) /uL Baso # (Auto) 100 (0-100) /uL PT 10.3 (9.4-12.5) SECONDS INR 0.9 (0.9-1.3) APTT 31 (25.1-36.5) SECONDS Sodium 135 L (137-145) mmol/L Potassium 4.3 (3.4-5.1) mmol/L Chloride 103 (98-107) mmol/L Carbon Dioxide 27 (22-32) mmol/L BUN 13 (7-17) mg/dL Creatinine 0.70 (0.52-1.04) mg/dL Estimated GFR > 60 (>60) mL/min BUN/Creatinine Ratio 18.6 (6-22) Glucose 110 (80-110) mg/dL Hemoglobin A1c 6.3 H (4.0-6.0) % Calcium 9.5 (8.4-10.2) mg/dL Magnesium 2.0 (1.6-2.3) mg/dL Total Bilirubin 0.7 (0.2-1.3) mg/dL AST 23 (14-36) IU/L ALT 17 (<35) IU/L Alkaline Phosphatase 54 (38-126) U/L Total Creatine Kinase 50 (30-135) U/L Troponin I < 0.012 (0.01-0.034) ng/mL Total Protein 7.0 (6.3-8.2) g/dL Albumin 4.4 (3.5-5.0) g/dL Globulin 2.6 (1.7-4.1) g/dL Albumin/Globulin Ratio 1.7 (1.0-2.8) Triglycerides 167 H (35-150) mg/dL Cholesterol 153 (140-199) mg/dL LDL Cholesterol, Calc 66 (<100) mg/dL HDL Cholesterol 54 (40-60) mg/dL Point of Care Testing Glucose POC [address] scan - head: Radiologist's Impression: [address] [address] [address] Scan Report Signed Patient: Nicolette Pittman MR#: [id number] : 1945 Acct:[id number] Age/Sex: 77 / F Date of Service: 08/03/23 Loc: ED Accession Number: [id number] Procedure: CT Stroke Ordering Provider: Rachael Iyer D.O. PROCEDURE: CT STROKE INDICATIONS: Positive BE-FAST, Stroke symptoms TECHNIQUE: Noncontrast 4.5 mm thick angled axial sections acquired from the foramen magnum to the vertex, with coronal reformats. For radiation dose reduction, the following was used: automated exposure control, adjustment of mA and/or kV according to patient size. COMPARISON: None. FINDINGS: Image quality: Diagnostic. CSF spaces: Basal cisterns are patent. No extra-axial fluid collections. The ventricles are symmetric in size and shape. Brain: No intracranial bleeds or masses. There is cerebral volume loss for age, with resultant ventricular and sulcal prominence. There are periventricular and deep white matter chronic small vessel ischemic changes. There is intracranial internal carotid artery atherosclerosis. Skull and face: Calvarium and visualized facial bones appear intact, without suspicious lesions. Lens replacements. Sinuses: Paranasal sinuses are clear. Right mastoid effusion. IMPRESSION: No acute intracranial pathology. Findings discussed with Dr. Iyer at 10:17 a.m. On 08/03/2023. This study fulfills neurological imaging criteria for inclusion or exclusion of acute stroke therapies based on available published neurological guidelines. Dictated by: Alex Steward M.D. on 08/03/2023 at 10:15 Approved by: Alex Steward M.D. on 08/03/2023 at 10:19 CTA - brain/neck: Radiologist's Impression: Close Head/Neck CTA (Signed) Angel Shane - 08/03/23 Chest X-Ray (Signed) Angel Shane - 08/03/[address] (Signed) Alex Steward - 08/03/23 Chest X-Ray (Signed) Mona Mims - 07/18/23 Mammogram Screening (Signed) Cee Ayala - 04/04/23 Mammogram Screening (Signed) Greg Echavarria - 03/12/22 DEXA Result 12/07/21 Bone Densitometry 12/07/[address] (Signed) Nikos Maxwell - 12/01/21 Lumbar Spine X-Ray (Signed) Cyrus Yepez - 10/26/21 Vascular Ultrasound (Signed) Greg Echavarria - 10/26/21 Hip X-Ray (Signed) Yenifer Woodall - 09/27/21 Telemetry Strips 11/06/20 Mammogram Screening (Signed) Jacob Elaine - 03/25/20 Lumbar Spine MRI (Signed) Brendon Marte - 04/26/19 Telemetry Strips 09/26/18 DI Result 10/04/17 Launch?Image [place] [id number] CT Scan Report Signed Patient: Nicolette Pittman MR#: [id number] : 1945 Acct:[id number] Age/Sex: 77 / F Date of Service: 08/03/23 Loc: ED Accession Number: [id number] Procedure: CT angio head and neck Ordering Provider: Rachael Iyer D.O. PROCEDURE: CT ANGIO HEAD AND NECK INDICATIONS: expressive aphasia TECHNIQUE: After the administration of intravenous contrast, 1 mm thick sections acquired from the aortic arch through the [place] of [place]. 3-dimensional gcmnnss-xzzxadhou-jrwlllwfib (MIP) and/or volume rendering reformats were acquired of the central intracranial vasculature and neck separately. For radiation dose reduction, the following was used: automated exposure control, adjustment of mA and/or kV according to patient size. COMPARISON: [facility], CT, CT STROKE, 08/03/2023, 10:06. FINDINGS: Image quality: Diagnostic. BRAIN: CSF spaces: Ventricles are normal in size and shape. Basal cisterns are patent. No extra-axial fluid collections. Brain: No significant abnormality of the brain can be seen. Skull and face: Calvarium and facial bones appear intact, without suspicious lesions. Orbits appear normal. Sinuses: Sinuses and mastoids are clear. HEAD CT ANGIOGRAPHY: Anterior circulation: Intracranial internal carotid arteries are normal in size and flow. The flow within the paired anterior cerebral arteries is normal and symmetric. The flow within the middle cerebral arteries is normal and symmetric. The anterior communicating artery is seen. No aneurysms are seen. Posterior circulation: Normal variant diminutive V4 segment of right vertebral artery. Dominant patent left vertebral artery. They join to form a normal appearing basilar artery. Flow within the posterior cerebral arteries is normal and symmetric. No aneurysms are seen. NECK CT ANGIOGRAPHY: Carotid system: The great vessels demonstrate a conventional anatomy as they arise from the aortic arch. The origins of the common carotid arteries appear patent. The common carotid arteries demonstrate normal caliber and courses. The bifurcation regions are both widely patent. Bilateral less than 50% calcified stenosis of the proximal internal carotid arteries. Posterior circulation: Incidental note made of severe tortuosity of the proximal left vertebral artery. The left vertebral artery is dominant. The right vertebral artery is normal variant diminutive and markedly diminutive in the V4 segment. They join to form a normal appearing basilar artery. Soft tissues: Visualized neck soft tissues demonstrate no suspicious abnormalities. Bones: Extensive cervical spondylitic change. Diffuse osteopenia. Patchy sclerotic areas in all cervical vertebral bodies. IMPRESSION: 1. No significant intracranial arterial abnormality is seen. 2. Bilateral less than 50% mild internal carotid artery stenosis. 3. Extensive cervical spondylosis, osteopenia. 4. Patchy sclerotic appearance of all cervical vertebral bodies, nonspecific. However, cannot exclude sclerotic bony metastatic disease. Comment: Consider CT chest through pelvis on a nonemergent bases, which would via better indicator as to whether not there is suspicious bony disease. Any quantitative measurements of stenosis were performed using NASCET criteria. Dictated by: Angel Shane M.D. on 08/03/2023 at 10:30 Approved by: Angel Shane M.D. on 08/03/2023 at 10:38 Chest x-ray: Radiologist's Impression: [place] [address] XRay Report Signed Patient: Nicolette Pittman MR#: [id number] : 1945 Acct:[id number] Age/Sex: 77 / F Date of Service: 08/03/23 Loc: ED Accession Number: [id number] Procedure: XR chest 1V Ordering Provider: Rachael Iyer D.O. PROCEDURE: XR CHEST 1V INDICATIONS: Possible stroke TECHNIQUE: One view of the chest was acquired. COMPARISON: [facility] , XR CHEST 2V, 07/18/2023, 16:33. FINDINGS: Surgical changes and devices: None. Lungs and pleura: Lungs are clear. No pleural effusions or pneumothorax. Mediastinum: Mediastinal contours appear normal. Heart size is normal. Bones and chest wall: No suspicious bony lesions. Overlying soft tissues appear unremarkable. IMPRESSION: No acute cardiopulmonary abnormality is seen. Dictated by: Angel Shane M.D. on 08/03/2023 at 10:46 Approved by: Angel Shane M.D. on 08/03/2023 at 10:46 ECG Data Attestation: I personally reviewed and interpreted this ECG as follows: Prior ECG tracings: available for review Interpretation: Sinus rhythm, frequent PVCs rate of 60 3p are 178 QRS is 68 QTC of 384. No acute ST elevation appreciated no depression noted. Patient has prior from 09/12/2015 does not have any PVCs but otherwise has similar ST changes. MDM Narrative Medical decision making narrative: 77-year-old female with symptoms consistent with possible TIA or stroke. Patient had witnessed changes at about 9:00 a.m. this morning, not tnk candidate as her symptoms have resolved NIH is now 1 4 stumbling over the words saw feeder in the very last sentence on the NIH cards but otherwise fairly normal speech with no other neurologic changes. Patient is initially quite hypertensive but recheck is 139/91. Vitals otherwise appropriate. Glucose at bedside is 116. Non-con head CT is negative CT angio no significant intracranial arterial abnormality bilateral less than 50% mild ICA stenosis, external cervical spondylosis and osteopenia. Patchy sclerotic appearance of all cervical vertebral bodies nonspecific but can not exclude sclerotic bony metastatic disease consider CT chest through pelvis on nonemergent Chest x-ray Labs show white count 11.4 hemoglobin of 13.6 platelets of 293, predominance of lymphocytes. Coags are negative, sodium is 135 normal potassium normal BUN and creatinine with glucose of 110, LFTs are negative troponin is negative. EKG does not show any ST changes, is bradycardic sinus rhythm but with frequent PVCs also noted on telemetry. Patient was given aspirin [address] Wilder, hospitalist: accepts for observation. Discharge Plan Departure Patient Disposition: Admitted as Observation Clinical Impression: TIA (transient ischemic attack), Frequent PVCs Admit Date/Time: 08/03/23 11:34 Admit Provider: Dez Wilder
[2023-08-03 10:12] LABS: Add Manual Diff / Slide Review NO; Basophils Absolute Auto 100 /uL (0-100); Basophils Percent Auto 1.3 % (0-2); Eosinophils Absolute Auto 200 /uL (0-450); Eosinophils Percent Auto 1.9 % (2-4); Hematocrit 41.5 % (36-46); Hemoglobin 13.6 g/dL (12.0-16.0); Lymphocytes Absolute Auto 5300 /uL (1100-4500); Lymphocytes Percent Auto 46.4 % (25-40); Mean Corpuscular HGB Conc 32.8 % (30-36); Mean Corpuscular Volume 91.6 fL (80-100); Monocytes Absolute Auto 600 /uL (0-900); Monocytes Percent Auto 5.3 % (3-14); Neutrophils Absolute Auto 5200 /uL (1500-7000); Neutrophils Percent Auto 45.1 % (50-75); Platelet Count 293 X10^3/uL (150-400); Red Blood Cell Count 4.53 X10^6/uL (4.0-5.2); White Blood Cell Count 11.4 X10^3/uL (4.5-11.0)
[2023-08-03 10:17] LABS: INR 0.9 (0.9-1.3); Prothrombin Time 10.3 SECONDS (9.4-12.5)
[2023-08-03 10:20] LABS: PTT Partial Thromboplastin Tim 31 SECONDS (25.1-36.5)
[2023-08-03 10:23] LABS: Alanine Aminotransferase 17 IU/L (<35); Albumin 4.4 g/dL (3.5-5.0); Albumin Globulin Ratio 1.7 (1.0-2.8); Alkaline Phosphatase 54 U/L (38-126); Aspartate Aminotransferase 23 IU/L (14-36); BUN Creatinine Ratio 18.6 (6-22); Bilirubin Total 0.7 mg/dL (0.2-1.3); Blood Urea Nitrogen 13 mg/dL (7-17); Calcium 9.5 mg/dL (8.4-10.2); Carbon Dioxide 27 mmol/L (22-32); Chloride 103 mmol/L (98-107); Creatine Kinase 50 U/L (30-135); Estimated Glomerular Filt Rate > 60 mL/min (>60); Globulin 2.6 g/dL (1.7-4.1); Glucose 110 mg/dL (80-110); HEMOLYSIS < 15 (0-50); Potassium 4.3 mmol/L (3.4-5.1); Sodium 135 mmol/L (137-145)
[2023-08-03 10:35] LABS: Troponin I < 0.012 ng/mL (0.01-0.034)
[2023-08-03] MEDS: ASPIRIN 81 MG CHEW TAB 324 MG PO (11:15)
[2023-08-03] MEDS: SODIUM CHLORIDE 0.9% 1,000 ML 150 ML IV (11:16)
--- NOTE | 2023-08-03 12:18 | DI.ECHO.S_ITS ---
[place]---------+ [facility] +---------+ : : [address] : : : : [id number] : : : : Phone: [phone]+ Echocardiogram Report + + :Name: JOVITA BEY Study Date: 08/03/2023 Height: 64 in : :[facility] ReadingLocation: Weight: 146 lb : : Gender: Female BSA: 1.7 m2 : :: 1945 Age: 77 yrs BP: 130/68 mmHg: :Reason For Study: TIA : :Ordering Physician: GEMA, : :RUBY Alejandro Performed By: Anjelica Palacios : :Referring: RUBY RIBEIRO : + + Interpretation Summary The patient was in normal sinus rhythm during the exam. The patient had occasional PVCs during the exam. The left ventricle is normal in size and wall thickness. The left ventricular ejection fraction is normal. The ejection fraction is estimated to be 55-60%. There is no LV thrombus. The right ventricle is normal in size and function. There is mild to moderate mitral regurgitation. The mitral regurgitant jet is eccentrically directed. There is mild to moderate aortic regurgitation. There is moderate tricuspid regurgitation. The right ventricular systolic pressure is estimated to be at least 37 mmHg based on an estimated right atrial pressure of 3 mm Hg. There is mild luminal irregularity and echogenicity in the abdominal aorta, suggestive of aortic atherosclerotic disease. No significant plaque in the aortic arch seen. Procedure: A two-dimensional transthoracic echocardiogram with color flow and Doppler was performed. The study quality was technically adequate. There is no prior echocardiogram noted for this patient. The patient had occasional PVCs during the exam. The heart rate ranged between 64-77 bpm during the study. The patient was in normal sinus rhythm during the exam. Left Ventricle: The left ventricle is normal in size and wall thickness. There is no thrombus. The ejection fraction is estimated to be 55-60%. The left ventricular ejection fraction is normal. There are no focal wall motion abnormalities. Diastolic parameters suggest a relaxation abnormality of the left ventricle, consistent with probable normal filling pressures. Right Ventricle: The right ventricle is normal in size and function. Atria: The left atrial size is normal. Right atrial size is normal. There is no Doppler evidence for an interatrial shunt. Mitral Valve: There is a flat closure plane of the the mitral valve leaflets. There is mild to moderate mitral regurgitation. The mitral regurgitant jet is eccentrically directed. Aortic Valve: The aortic valve is trileaflet. The aortic valve is mildly calcified. There is no aortic valve stenosis. There is mild to moderate aortic regurgitation. Tricuspid Valve: The tricuspid valve is normal. There is moderate tricuspid regurgitation. The right ventricular systolic pressure is estimated to be at least 37 mmHg based on an estimated right atrial pressure of 3 mm Hg. Pulmonic Valve: The pulmonic valve leaflets are thin and pliable; valve motion is normal. There is mild pulmonic regurgitation. Great Vessels: The aortic root is normal size. The dimensions of the ascending aorta are normal. There is mild luminal irregularity and echogenicity in the abdominal aorta, suggestive of aortic atherosclerotic disease. The IVC is of normal diameter and collapses greater than 50% with a sniff. This suggests a low right atrial pressure of 3 mm Hg. Pericardium/ Pleura There is no pericardial effusion. There is no pleural effusion. MMode/2D Measurements & Calculations LVIDd: 4.5 cm LVOT diam: 2.0 cm LVIDs: 3.1 cm Ao root diam: 2.9 cm FS: 30.3 % asc Aorta Diam: 3.3 cm IVSd: 0.87 cm LVPWd: 0.96 cm LV nash. diameter/BSA (cm/m^2): 2.6 LV sys. diameter/BSA (cm/m^2): 1.8 LA A2 area: 14.2 cm2 RA long axis: 4.7 cm LA A4 area: 14.3 cm2 RA area: 13.2 cm2 LA length (vol): 4.3 cm RA vol: 31.6 ml LA vol: 39.6 ml RA : 18.5 ml/m2 LA vol index: 23.1 ml/m2 IVC diam: 1.3 cm RVD1 (basal): 3.3 cm RVD2 (mid): 2.7 cm TAPSE: 1.7 cm Doppler Measurements & Calculations Ao V2 max: 159.3 cm/sec LVOT Max Trevon: 99.6 cm/sec Ao V2 mean: 120.5 cm/sec LV V1 max P.0 mmHg Ao max P.2 mmHg LV V1 VTI: 20.8 cm Ao mean P.3 mmHg GRIS(I,D): 1.9 cm2 Ao V2 VTI: 33.3 cm GRIS(V,D): 1.9 cm2 sev ratio: 0.62 GRIS indexed to BSA (cm^2/m^2): 1.1 MV E max trevon: 68.3 cm/sec TR max trevon: 293.4 cm/sec MV A max trevon: 93.0 cm/sec TR max P.4 mmHg MV E/A: 0.73 PA V2 max: 64.6 cm/sec Med Peak E' Trevon: 7.8 cm/sec PA V2 mean: 48.8 cm/sec E/E' med: 8.7 PA mean P.0 mmHg Lat Peak E' Trevon: 6.5 cm/sec PA pr(Accel): 41.3 mmHg E/E' lat: 10.6 E/e' average: 9.6 MV dec time: 0.18 sec SV(LVOT): 63.6 ml Reading Physician:04:36 PM
--- NOTE | 2023-08-03 12:24 | DI.MRI.S_ITS ---
PROCEDURE: MR HEAD/BRAIN WO CON INDICATIONS: TIA TECHNIQUE: Non-contrast axial T1 spin echo, axial T2 fast spin echo, sagittal and axial FLAIR, coronal T2 fast spin echo, axial gradient echo, axial diffusion and ADC through the brain. COMPARISON: [facility], CT, CT ANGIO HEAD AND NECK, 08/03/2023, 10:06. [facility], CT, CT STROKE, 08/03/2023, 10:06. FINDINGS: Image quality: Excellent. CSF spaces: Ventricles appear symmetric in size and shape. Basal cisterns are patent. No extra-axial fluid collections. Brain: No intracranial bleeds or mass effects. There is cerebral volume loss for age. There are [id number], age-appropriate periventricular and deep white matter chronic small vessel ischemic changes. Brainstem appears normal. Diffusion-weighted images show no acute infarct. No chronic ischemic insults. Normal intravascular flow voids are present. Skull and face: Calvarial bone marrow is normal in signal. Orbits are normal. Sinuses: Complete or near complete opacification of the right mastoids. Patchy opacification of the left mastoids. Paranasal sinuses are clear. IMPRESSION: 1. Age-related volume loss and mild to moderate, age-appropriate small-vessel ischemic change. 2. No acute stroke, hemorrhage, or mass. 3. Complete or near-complete right mastoid opacification, patchy left mastoid opacification. This can commonly be asymptomatic. However, recommend correlation for presence or absence of symptoms of mastoiditis. Dictated by: Angel Shane M.D. on 08/03/2023 at 15:44 Approved by: Angel Shane M.D. on 08/03/2023 at 15:48
[2023-08-03 13:08] LABS: Cholesterol 153 mg/dL (140-199); HDL Cholesterol 54 mg/dL (40-60); LDL Cholesterol Calculated 66 mg/dL (<100); Triglycerides 167 mg/dL (35-150)
[2023-08-03 13:10] LABS: Hemoglobin A1C% w Est Avg Glu 6.3 % (4.0-6.0)
[2023-08-03] MEDS: ENOXAPARIN 40 MG/0.4 ML SYRINGE SUBCUT (13:39)
[2023-08-03 14:08] LABS: TSH w/ Reflex to FT4 0.49 uIU/mL (0.47-4.68)
--- NOTE | 2023-08-03 14:24 | PM.HP.1 ---
History of Present Illness History of Present Illness Chief complaint: worried she had TIA Narrative: Nicolette Pittman is a 77 YO female with a PMH of HTN, DM2, polymyalgia rheumatica, fibromyalgia, dyslipidemia, osteoporosis, neuropathy, and GERD. She was brought in to the ED with focal neurological deficits. This morning she wasn?t able to write a message to her friends via online chat and couldn?t initiate the movements to type on the keyboard. Her denies any facial asymmetry, or drooping at the time of the event. She has been suffering from a sinus infection for the past 3 weeks and got sick while visiting her family in [place]. She took antibiotics for the infection and it resolved however the last few days she has experienced nausea. She reports a constant dull headache however she admits to a fall while she was in [place] that resulted in hitting her head. She reports a productive cough, denies vomiting, vision changes, dyspnea or chest pain. [facility] Medical History Polymyalgia rheumatica Surgical History History of blepharoplasty Status post tonsillectomy and adenoidectomy Status post bunionectomy Status post appendectomy Social History household members: spouse Smoking Status: Never smoker alcohol intake: current Meds Home Medications and Allergies Home Medications Medication Instructions Recorded Confirmed Type Calcium/Vitamin D (#CITRACAL + D 1 tab PO DAILY ##0 11/18/11 08/03/23 History 315 MG-200 IU) Coenzyme Q10 (#CO Q-10) 50 mg PO DAILY ##0 11/18/11 08/03/23 History metformin 500 mg tablet,extended 1,000 mg PO BID ##0 11/18/11 08/03/23 History release 24 hr cyanocobalamin (vitamin B-12) 1,000 mcg PO DAILY ##0 11/23/15 08/03/23 History 1,000 mcg tablet,extended release pramipexole 0.25 mg tablet 0.25 mg PO BEDTIME #0 tabs 12/10/15 08/03/23 History (Mirapex) pregabalin 75 mg capsule (Lyrica) 75 mg PO BID #0 caps 01/06/16 08/03/23 History pravastatin 40 mg tablet 40 mg PO BEDTIME ##0 03/08/16 08/03/23 History triamcinolone acetonide 0.1 % 1 applic topical DAILY PRN Itching 09/19/17 08/03/23 History topical cream losartan 25 mg tablet 50 mg PO BID 08/09/19 08/03/23 History lidocaine 5 % topical patch 1 patch topical DAILY PRN back 10/26/21 08/03/23 Rx (Lidoderm) pain #15 ea methocarbamol 500 mg tablet 500 mg PO BEDTIME PRN muscle spasm 10/26/21 08/03/23 Rx #14 tabs aspirin 81 mg tablet,delayed 81 mg PO DAILY #30 tabs 08/03/23 Rx release duloxetine 60 mg capsule,delayed 60 mg PO BEDTIME 08/03/23 08/03/23 History release levofloxacin 750 mg tablet 750 mg PO DAILY 6 days #6 tabs 08/03/23 Rx omeprazole 20 mg capsule,delayed 20 mg PO BIDAC 08/03/23 08/03/23 History release ondansetron 4 mg disintegrating 4 mg PO BID PRN Nausea And Vomiting 08/03/23 08/03/23 History tablet Allergies Allergy/AdvReac Type Severity Reaction Status Date / Time No Known Drug Allergies Allergy Verified 07/18/23 15:10 Review of Systems Review of Systems Narrative: All other systems reviewed with the patient and are negative unless otherwise stated. Exam Vital Signs (past 8 hours): - 08/03/23 09:54 08/03/23 09:54 08/03/23 09:59 Temperature 97.8 F Pulse Rate 74 65 Respiratory Rate 16 Blood Pressure 188/83 H 188/83 H Pulse Oximetry 98 98 Oxygen Delivery Method Room Air Room Air 08/03/23 10:00 08/03/23 10:11 08/03/23 10:11 Temperature Pulse Rate 71 80 Respiratory Rate 21 21 Blood Pressure 139/91 H Pulse Oximetry 100 100 Oxygen Delivery Method 08/03/23 10:30 08/03/23 11:00 08/03/23 11:00 Temperature Pulse Rate 69 76 Respiratory Rate 28 H Blood Pressure 137/66 Pulse Oximetry 100 95 Oxygen Delivery Method Room Air 08/03/23 11:30 08/03/23 11:31 08/03/23 11:31 Temperature Pulse Rate 74 73 Respiratory Rate 24 25 H Blood Pressure 167/83 H Pulse Oximetry 96 96 Oxygen Delivery Method 08/03/23 12:00 08/03/23 12:01 08/03/23 12:01 Temperature Pulse Rate 67 68 Respiratory Rate 24 19 Blood Pressure 146/79 H Pulse Oximetry 98 98 Oxygen Delivery Method 08/03/23 13:00 Temperature 97.0 F L Pulse Rate 80 Respiratory Rate 16 Blood Pressure 156/92 H Pulse Oximetry 99 Oxygen Delivery Method Oxygen Delivery Method Room Air Narrative Exam Narrative: GEN: no acute distress, sitting upright answering questions appropriately HEENT: Tenderness to palpation of her scalp, no erythema visualized. No sinus tenderness upon palpation. CV: RRR, no murmurs PULM: normal respiratory effort, no wheezing or rhonchi NEURO: AAOx3, CN III-XII intact Objective Labs 08/03/23 09:59 08/03/23 09:59 Labs: Laboratory Results - last 24 hr 08/03/23 08/03/23 09:59 13:05 WBC 11.4 H RBC 4.53 Hgb 13.6 Hct 41.5 MCV 91.6 MCH 30.0 MCHC 32.8 RDW 14.0 Plt Count 293 Neut % (Auto) 45.1 L Lymph % (Auto) 46.4 H [place] % (Auto) 5.3 Eos % (Auto) 1.9 L Baso % (Auto) 1.3 Neut # (Auto) 5200 Lymph # (Auto) 5300 H [place] # (Auto) 600 Eos # (Auto) 200 Baso # (Auto) 100 PT 10.3 INR 0.9 APTT 31 Sodium 135 L Potassium 4.3 Chloride 103 Carbon Dioxide 27 BUN 13 Creatinine 0.70 Estimated GFR > 60 BUN/Creatinine Ratio 18.6 Glucose 110 Hemoglobin A1c 6.3 H Calcium 9.5 Magnesium 2.0 Total Bilirubin 0.7 AST 23 ALT 17 Alkaline Phosphatase 54 Total Creatine Kinase 50 Troponin I < 0.012 Total Protein 7.0 Albumin 4.4 Globulin 2.6 Albumin/Globulin Ratio 1.7 Triglycerides 167 H Cholesterol 153 LDL Cholesterol, Calc 66 HDL Cholesterol 54 TSH 0.49 Assessment & Plan Assessment & Plan narrative: # possible TIA -had several minutes of word-finding difficulty -start aspirin, already on statin and LDL at goal -obtain echo -MRI brain # mastoiditis -MRI showed bilateral opacification of mastoids -patient recently dealing with sinus infection and has some hearing loss -start levaquin 750mg x7 days # HTN -allow 24 hours of permissive HTN # DM2 -hold metformin -SSI # HLD -continue statin # fibromyalgia -continue cymbalta and lyrica Code status is full good. DVT prophylaxis with Lovenox. Proxy is . I have reviewed home meds and used all available resources to reconcile the home meds. Case discussed with ED physician/APC and patient will be admitted to the hospitalist service for further workup and management. This patient will be admitted as observation and will require less than 2 midnights of hospital time to treat TIA. Quality VTE Deep Vein Thrombosis/Pulmonary Embolism Present on Admission: No
--- NOTE | 2023-08-03 14:53 | PC.NURSE ---
Addendum entered by Roberto Jones R.N. 08/03/23 15:22: BACK FROM MRI, ECHO HERE FOR HER Original Note: PATIENT TAKEN FOR MRI
[2023-08-03] MEDS: levoFLOXacin 250 MG TABLET 750 MG PO (16:15)
--- NOTE | 2023-08-03 18:37 | P.DS_ITS ---
History of Present Illness History of Present Illness Chief complaint: worried she had TIA Narrative: Nicolette Pittman is a 77 YO female with a PMH of HTN, DM2, polymyalgia rheumatica, fibromyalgia, dyslipidemia, osteoporosis, neuropathy, and GERD. She was brought in to the ED with focal neurological deficits. This morning she wasn?t able to write a message to her friends via online chat and couldn?t initiate the movements to type on the keyboard. Her denies any facial asymmetry, or drooping at the time of the event. She has been suffering from a sinus infection for the past 3 weeks and got sick while visiting her family in [place]. She took antibiotics for the infection and it resolved however the last few days she has experienced nausea. She reports a constant dull headache however she admits to a fall while she was in [place] that resulted in hitting her head. She reports a productive cough, denies vomiting, vision changes, dyspnea or chest pain. Discharge Providers Provider Date of admission: 08/03/23 11:34 Discharge Date: 08/03/23 Primary care physician: Joi Acuna PA-C Discharge provider: Dez Wilder DO Summary Hospital Course Discharge Diagnosis: # possible TIA -had several minutes of word-finding difficulty, now resolved -start aspirin, already on statin and LDL at goal -echo reassuring with normal EF -MRI brain normal, other than mastoiditis # mastoiditis -MRI showed bilateral opacification of mastoids -patient recently dealing with sinus infection and has some hearing loss -start levaquin 750mg x7 days # HTN -allow 24 hours of permissive HTN # DM2 -hold metformin -SSI # HLD -continue statin # fibromyalgia -continue cymbalta and lyrica Hospital Course: Admitted for possible TIA with several minutes of word-finding difficulty which then resolved. MRI brain negative for stroke but showed mastoiditis. Echo reassuring. Started on levaquin x7 days and aspirin daily. Statin continued as her LDL already at goal. Recommended outpatient zio patch. Exam Vital Signs (past 8 hours): - 08/03/23 11:00 08/03/23 11:00 08/03/23 11:30 Temperature Pulse Rate 76 74 Respiratory Rate 24 Blood Pressure 137/66 Pulse Oximetry 95 96 08/03/23 11:31 08/03/23 11:31 08/03/23 12:00 Temperature Pulse Rate 73 67 Respiratory Rate 25 H 24 Blood Pressure 167/83 H Pulse Oximetry 96 98 08/03/23 12:01 08/03/23 12:01 08/03/23 13:00 Temperature 97.0 F L Pulse Rate 68 80 Respiratory Rate 19 16 Blood Pressure 146/79 H 156/92 H Pulse Oximetry 98 99 08/03/23 17:00 Temperature 97.1 F L Pulse Rate 64 Respiratory Rate 16 Blood Pressure 130/68 Pulse Oximetry 98 Oxygen Delivery Method Room Air Narrative Exam Narrative: GEN: no acute distress, sitting upright answering questions appropriately, hard of hearing HEENT: Tenderness to palpation of her scalp, no erythema visualized. No sinus tenderness upon palpation. CV: RRR, no murmurs PULM: normal respiratory effort, no wheezing or rhonchi NEURO: AAOx3, CN III-XII intact Objective Labs 08/03/23 09:59 08/03/23 09:59 Labs: Laboratory Results - last 24 hr 08/03/23 08/03/23 09:59 13:05 WBC 11.4 H RBC 4.53 Hgb 13.6 Hct 41.5 MCV 91.6 MCH 30.0 MCHC 32.8 RDW 14.0 Plt Count 293 Neut % (Auto) 45.1 L Lymph % (Auto) 46.4 H [place] % (Auto) 5.3 Eos % (Auto) 1.9 L Baso % (Auto) 1.3 Neut # (Auto) 5200 Lymph # (Auto) 5300 H [place] # (Auto) 600 Eos # (Auto) 200 Baso # (Auto) 100 PT 10.3 INR 0.9 APTT 31 Sodium 135 L Potassium 4.3 Chloride 103 Carbon Dioxide 27 BUN 13 Creatinine 0.70 Estimated GFR > 60 BUN/Creatinine Ratio 18.6 Glucose 110 Hemoglobin A1c 6.3 H Calcium 9.5 Magnesium 2.0 Total Bilirubin 0.7 AST 23 ALT 17 Alkaline Phosphatase 54 Total Creatine Kinase 50 Troponin I < 0.012 Total Protein 7.0 Albumin 4.4 Globulin 2.6 Albumin/Globulin Ratio 1.7 Triglycerides 167 H Cholesterol 153 LDL Cholesterol, Calc 66 HDL Cholesterol 54 TSH 0.49 PFSH Medical History Polymyalgia rheumatica Surgical History History of blepharoplasty Status post tonsillectomy and adenoidectomy Status post bunionectomy Status post appendectomy Social History household members: spouse Smoking Status: Never smoker alcohol intake: current Discharge Plan Discharge Plan Patient Disposition: Home Provider Discharge Comment: You may have had a TIA. Please do the followin. Start an aspirin daily indefinitely 2. Continue your statin and diabetes medication to maintain good control 3. Have your PCP refer you to wear a Zio patch to rule out Atrial Fibrillation 4. Start antibiotics for ongoing symptoms of sinus infection which showed on your MRI and warrant further treatment Discharge orders & Medications Prescriptions: New levofloxacin 750 mg tablet 750 mg PO DAILY 6 Days Qty: 6 0RF Rx Instructions: start on 08/03 aspirin 81 mg Tablet,Delayed Release (Dr/Ec) 81 mg PO DAILY Qty: 30 0RF Continued metformin 500 mg Tablet Extended Release 24 Hr 1,000 mg PO BID Qty: 0 Coenzyme Q10 (#CO Q-10) 50 mg PO DAILY Qty: 0 Calcium/Vitamin D (#CITRACAL + D 315 MG-200 IU) 1 tab PO DAILY Qty: 0 cyanocobalamin (vitamin B-12) 1,000 MCG tablet extended release 1,000 mcg PO DAILY Qty: 0 pramipexole [Mirapex] 0.25 MG tablet 0.25 mg PO BEDTIME Qty: 0 pregabalin [Lyrica] 75 MG capsule 75 mg PO BID Qty: 0 pravastatin 40 MG tablet 40 mg PO BEDTIME Qty: 0 triamcinolone acetonide 0.1 % cream 1 applic TOP DAILY PRN (Reason: Itching) losartan 25 mg tablet 50 mg PO BID ondansetron 4 mg tablet,disintegrating 4 mg PO BID PRN (Reason: Nausea And Vomiting) omeprazole 20 mg Capsule,Delayed Release(Dr/Ec) 20 mg PO BIDAC duloxetine 60 mg Capsule,Delayed Release(Dr/Ec) 60 mg PO BEDTIME methocarbamol 500 mg tablet 500 mg PO BEDTIME PRN (Reason: muscle spasm) Qty: 14 0RF lidocaine [Lidoderm] 5 % adhesive patch,medicated 1 patch topical DAILY PRN (Reason: back pain) Qty: 15 0RF Rx Instructions: leave on most painful area for up to 12 hrs Follow up/Referrals: Joi Acuna PA-C [Primary Care Provider] - 2 Weeks Visit Report/Discharge Packet Stand Alone Forms: Patient Portal/API, Stroke Signs & Symptoms Discharge Data Primary Care Provider: Joi Acuna Attending Provider: Dez Wilder Admit Date/Time: 08/03/23 11:34 Quality VTE Deep Vein Thrombosis/Pulmonary Embolism Present on Admission: No
== END 2023-08-03 18:01 | disposition home or self-care (01) ==
LOC: ED 11:15 → AC 11:34
PROVIDERS: Admitting Provider Student in an Organized Health Care Education/Training Program; Emergency Provider Emergency Medicine; PCP Student in an Organized Health Care Education/Training Program; Referring Provider Emergency Medicine; Visit Provider Student in an Organized Health Care Education/Training Program
DX: R41.0 Disorientation, unspecified (principal); E11.9 Type 2 diabetes mellitus without complications; I10 Essential (primary) hypertension; Z79.84 Long term (current) use of oral hypoglycemic drugs; M35.3 Polymyalgia rheumatica; H70.93 Unspecified mastoiditis, bilateral
CPT/HCPCS: 36415; 70450; 70496; 70498; 70551; 71045; 80053; 80061; 82550; 82962; 83036; 83735; 84443; 84484; 85025; 85610; 85730; 93005; 93010; 93306; 96372; 99285; G0378; J1650; Q9967

== ENCOUNTER → 2023-08-15 07:53 | Outpatient (CLI) | payer MEDICARE, OTHER, SELFPAY ==
[2023-08-03 12:38] VITALS: BMI 26.3
--- NOTE | 2023-08-15 | DI.CT.S_ITS ---
PROCEDURE: CT CHEST ABD PEL W CON INDICATIONS: Other specified disorders of bone, unspecified site TECHNIQUE: After the administration of intravenous contrast, 5 mm thick sections acquired from the lung apices to the symphysis. 5 mm coronal and sagittal reformats were performed, with additional 7 mm MIP reformats through the lungs. For radiation dose reduction, the following was used: automated exposure control, adjustment of mA and/or kV according to patient size. COMPARISON: None. FINDINGS: Image quality: Excellent. CHEST: Lower Neck: No enlarged lymph nodes. Thyroid: No thyroid nodules which require sonographic follow up, per consensus guidelines. Axillae: No enlarged lymph nodes. Chest Wall: Unremarkable. Lungs and Pleura: No pneumothorax or pleural effusions. A few solid pulmonary micro nodules, largest measuring 3 mm in the left upper lobe (series 6, image 33). Trace ground-glass in the dependent lungs, probably atelectasis. Juxtapleural nodules with smooth margins, favoring benign intrapulmonary lymph nodes. Heart: Heart size is mildly enlarged. No pericardial effusion. Moderate LAD calcifications. Thoracic Vessels: The aorta and pulmonary arteries demonstrate normal size. Mediastinum and Alisha: No enlarged lymph nodes. Esophagus: No wall thickening. No hiatal hernia. ABDOMEN: Liver: No solid mass. Gallbladder: No radiopaque gallstones or wall thickening. Biliary ducts: No biliary dilation. Pancreas: No ductal dilation. Spleen: Size is within normal limits. Calcified granuloma. Adrenal Glands: No adrenal nodules. Kidneys and Ureters: No hydronephrosis. No solid mass. No complex renal cystic lesion which requires follow up. Stomach and Bowel: Normal colonic caliber, without significant wall thickening. Small duodenal diverticulum extending off of segment 2, not obstructing the biliary tree. Colonic diverticulosis without evidence of diverticulitis. Peritoneum: No abnormal intraperitoneal fluid. No free air. Ventral Wall: No significant ventral hernia. Abdominal Nodes: No retroperitoneal or mesenteric adenopathy by size criteria. Vessels: Aorta and inferior vena cava are normal in size. PELVIS: Pelvic Organs: 4.0 x 3.5 cm left ovarian cyst with perceived layering component (series 3, image 96). Bladder: No bladder wall thickening, accounting for underdistention. Pelvic Nodes: No enlarged lymph nodes. Miscellaneous: No inguinal hernias are seen. Bones: No aggressive osseous abnormality. Heterogeneous attenuation of the spine, without measurable soft tissue component. IMPRESSION: Heterogeneous attenuation of the spine, without measurable soft tissue component. This could be due to low bone mineralization, but a diffuse infiltrative process such as myeloma is not entirely excluded. Correlate with laboratory values and consider further imaging with bone scintigraphy or spine MRI with contrast. 4.0 x 3.5 cm left ovarian cyst with perceived layering component. Recommend pelvic ultrasound for complete characterization. Dictated by: Hai Ortiz M.D. on 08/15/2023 at 10:42 Approved by: Hai Ortiz M.D. on 08/15/2023 at 10:51
== END ==
PROVIDERS: PCP Student in an Organized Health Care Education/Training Program; Referring Provider Student in an Organized Health Care Education/Training Program; Visit Provider Student in an Organized Health Care Education/Training Program
DX: M89.8X9 Other specified disorders of bone, unspecified site (principal); R93.89 Abnormal findings on diagnostic imaging of other specified body structures; N83.202 Unspecified ovarian cyst, left side; K57.10 Diverticulosis of small intestine without perforation or abscess without bleeding; K57.90 Diverticulosis of intestine, part unspecified, without perforation or abscess without bleeding; R91.8 Other nonspecific abnormal finding of lung field; I25.10 Atherosclerotic heart disease of native coronary artery without angina pectoris; I51.7 Cardiomegaly
CPT/HCPCS: 71260; 74177; Q9967

== ENCOUNTER → 2023-08-23 15:37 | Outpatient (CLI) | payer MEDICARE, OTHER, SELFPAY ==
[2023-08-03 12:38] VITALS: BMI 26.3
--- NOTE | 2023-08-23 15:39 | DI.MRI.S_ITS ---
PROCEDURE: MR LUMBAR SPINE WO/W CON INDICATIONS: CERVICAL,THORACIC AND LUMBAR PAIN TECHNIQUE: Noncontrast sagittal T1 spin echo and T2 fast spin echo, sagittal STIR, axial T1 and T2 fast spin echo through the lumbar spine. In cases with scoliosis, additional coronal T2 fast spin echo may be performed. After the administration of contrast, sagittal and axial T1 spin echo with fat saturation through the lumbar spine. COMPARISON: [facility], MR, MR LUMBAR SPINE WO CON, 04/26/2019, 16:33. FINDINGS: Image quality: Excellent. Alignment and curvature: Mild dextrocurvature of the lumbar spine. Marrow: Marrow is of normal overall signal. No acute vertebral body compression fractures. No suspicious marrow enhancement. Spinal cord: Conus medullaris terminates at the L1-L2 level. Visualized spinal cord demonstrates normal signal, without suspicious enhancement. Paraspinous soft tissues: No paravertebral masses or abnormal enhancement. Left renal simple appearing cyst. T12-L1: Disc desiccation and mild disc bulge. Facet arthropathy. No central canal or neural foraminal stenosis. L1-L2: Mild disc desiccation. No significant disc bulge. Facet arthropathy. No significant central canal or neural foraminal stenosis. Stable compared to prior. L2-L3: Disc desiccation and mild disc bulge. Facet arthropathy and thickening of ligamentum flavum. No significant central canal stenosis. Stable mild left and no right neural foraminal stenosis. L3-L4: Disc desiccation height loss. Posterior disc bulge with mild superimposed central disc protrusion. Facet arthropathy and thickening of ligamentum flavum. Stable mild to moderate central canal stenosis. Moderate left and mild right neural foraminal stenosis is stable. L4-L5: Disc desiccation height loss. Diffuse disc bulge with a superimposed mild central disc protrusion. Facet arthropathy and thickening of ligamentum flavum. Stable moderate central canal stenosis. Stable moderate right and mild left neural foraminal stenosis. L5-S1: Severe disc desiccation height loss. Diffuse disc bulge. Posterior annular tear. Facet arthropathy. Central disc protrusion is present. Stable moderate central canal stenosis. Moderate right and moderate to severe left neural foraminal stenosis. IMPRESSION: 1. Multilevel degenerative changes of the lumbar spine are redemonstrated and overall similar in appearance compared to prior. 2. Stable moderate central canal stenosis at L4-5 and L5-S1. 3. Moderate to severe left neural foraminal stenosis at L5-S1. Moderate neural foraminal stenosis on the left at L3-L4, right L4-5 and right at L5-S1. Dictated by: Alex Steward M.D. on 08/24/2023 at 8:34 Approved by: Alex Steward M.D. on 08/24/2023 at 8:42
--- NOTE | 2023-08-23 15:39 | DI.MRI.S_ITS ---
PROCEDURE: MR CERVICAL SPINE WO/W CON INDICATIONS: CERVICAL,THORACIC AND LUMBAR PAIN TECHNIQUE: Noncontrast sagittal T1 spin echo and T2 fast spin echo, sagittal STIR, foraminal oblique sagittal T2 fast spin echo, axial gradient echo or T2 fast spin echo through the cervical spine. After the administration of contrast, axial and sagittal T1 spin echo with fat saturation through the cervical spine. COMPARISON: None. FINDINGS: Image quality: Excellent. Alignment and curvature: Mild anterolisthesis of C6 on C7. Marrow: Marrow is normal in overall signal, without suspicious enhancement. Spinal cord: Visualized spinal cord has normal size and signal. No cerebellar tonsillar herniation. No abnormal intramedullary enhancement. Paraspinous soft tissues: No paravertebral masses or suspicious enhancement. Bilateral mastoid effusions, right greater than left. C2-3: Disc desiccation and minimal posterior disc osteophyte complex. No central canal or neural foraminal stenosis. C3-4: Disc desiccation and mild posterior disc osteophyte complex. No central canal stenosis. Facet and uncovertebral arthropathy. Mild bilateral neural foraminal stenosis. C4-5: Disc desiccation. No central canal stenosis. Facet and uncovertebral arthropathy. Moderate right and mild left neural foraminal stenosis. C5-6: Disc desiccation and posterior disc osteophyte complex abutting the ventral cord. Mild central canal stenosis. Facet and uncovertebral arthropathy moderate bilateral neural foraminal stenosis. C6-7: Disc desiccation and posterior disc osteophyte complex. No significant central canal stenosis. Facet and uncovertebral arthropathy. No significant neural foraminal stenosis. C7-T1: Disc desiccation and mild posterior disc osteophyte complex. No central canal or neural foraminal stenosis. IMPRESSION: 1. Multilevel degenerative changes of the cervical spine as described above. 2. Mild central canal stenosis at C5-C6. Otherwise, the central canal is patent. 3. Moderate neural foraminal stenosis on the right at C4-C5 and bilaterally at C5-C6. Dictated by: Alex Steward M.D. on 08/24/2023 at 8:28 Approved by: Alex Steward M.D. on 08/24/2023 at 8:34
--- NOTE | 2023-08-23 15:39 | DI.MRI.S_ITS ---
PROCEDURE: MR THORACIC SPINE WO/W CON INDICATIONS: CERVICAL,THORACIC AND LUMBAR PAIN TECHNIQUE: Noncontrast sagittal T1 spin echo and T2 fast spin echo, sagittal STIR, axial T1 and T2 fast spin echo through the thoracic spine. After the administration of contrast, axial and sagittal T1 spin echo with fat saturation through the thoracic spine. COMPARISON: None. FINDINGS: Image quality: Excellent. Alignment and curvature: Mild dextrocurvature of the thoracic spine. Otherwise, normal alignment. Marrow: Marrow is of normal overall signal. No acute vertebral body compression fractures. Spinal cord: Visualized spinal cord is of normal signal and size, without abnormal enhancement. Paraspinous soft tissues: No paravertebral masses or abnormal enhancement. Miscellaneous: Multilevel disc desiccation height loss. Multiple small posterior disc bulges. Facet arthropathy. Central canal and foramina appear widely patent at all scanned levels. IMPRESSION: Multilevel degenerative changes of the thoracic spine without significant central canal or neural foraminal stenosis. Dictated by: Alex Steward M.D. on 08/24/2023 at 8:42 Approved by: Alex Steward M.D. on 08/24/2023 at 8:48
== END ==
PROVIDERS: PCP Student in an Organized Health Care Education/Training Program; Referring Provider Student in an Organized Health Care Education/Training Program; Visit Provider Student in an Organized Health Care Education/Training Program
DX: M47.812 Spondylosis without myelopathy or radiculopathy, cervical region; M48.02 Spinal stenosis, cervical region; M47.814 Spondylosis without myelopathy or radiculopathy, thoracic region; M47.816 Spondylosis without myelopathy or radiculopathy, lumbar region; M47.817 Spondylosis without myelopathy or radiculopathy, lumbosacral region; M48.061 Spinal stenosis, lumbar region without neurogenic claudication; M48.07 Spinal stenosis, lumbosacral region; R93.89 Abnormal findings on diagnostic imaging of other specified body structures; M89.8X9 Other specified disorders of bone, unspecified site
CPT/HCPCS: 72156; 72157; 72158; A9579

== ENCOUNTER → 2023-08-28 06:45 | Outpatient (CLI) | payer MEDICARE, OTHER, SELFPAY ==
[2023-08-03 12:38] VITALS: BMI 26.3
--- NOTE | 2023-08-28 06:46 | DI.US.S_ITS ---
PROCEDURE: US PELVIC COMPLETE INDICATIONS: CYST OF LEFT OVARY TECHNIQUE: Real-time scanning was performed of the pelvic organs, with image documentation. Additional endovaginal scanning was necessary due to incomplete visualization of the adnexal and endometrial structures by transabdominal scanning. COMPARISON: [facility], CT, CT CHEST ABD PEL W CON, 08/15/2023, 9:11. [facility], US, PELVIC COMPLETE, 11/15/2012, 13:22. FINDINGS: Uterus: Uterus is retroverted and normal in size at 3.9 x 2.9 x 4.0 cm. The myometrium is heterogeneous. The endometrium is not visualized. Ovaries: Ovary is not visualized. There is a cystic lesion in the cul-de-sacs measuring 4.2 x 2.9 x 3.8 centimeters, containing two, small, avascular subcentimeter papillary projections. Other: No pathologic free abdominal or pelvic fluid. IMPRESSION: Left adnexal cystic lesion containing two subcentimeter avascular nodules / papillary projections (O-RADS 4). Recommend gynecologic oncologic referral for further management. We strive to produce accurate, complete, and clear reports of imaging services. To assist us in improving patient care, this report was composed using standard report templates and voice recognition software. Therefore, it may contain abnormal punctuation, insertions and/or omissions. Occasional wrong-word or sound-alike substitutions may occur. Though we review the report and make efforts to correct it, we do recommend that the report be read carefully in proper context to recognize any text inaccuracies. Dictated by: Hai Ortiz M.D. on 08/28/2023 at 9:21 Approved by: Hai Ortiz M.D. on 08/28/2023 at 9:27
== END ==
LOC: US 06:46
PROVIDERS: PCP Student in an Organized Health Care Education/Training Program; Referring Provider Student in an Organized Health Care Education/Training Program; Visit Provider Student in an Organized Health Care Education/Training Program
DX: N83.202 Unspecified ovarian cyst, left side (principal)
CPT/HCPCS: 76830; 76856

== ENCOUNTER → 2023-08-30 16:21 | Outpatient (CLI) | payer MEDICARE, OTHER, SELFPAY ==
[2023-08-03 12:38] VITALS: BMI 26.3
[2023-08-30 19:17] LABS: Cancer Antigen 125 9.7 U/mL (0-35)
== END ==
LOC: LAB 16:22
PROVIDERS: PCP Student in an Organized Health Care Education/Training Program; Referring Provider Obstetrics & Gynecology; Visit Provider Obstetrics & Gynecology
DX: R19.09 Other intra-abdominal and pelvic swelling, mass and lump (principal)
CPT/HCPCS: 36415; 86304

== ENCOUNTER 2023-10-02 08:05 | Day surgery (SDC) | payer MEDICARE, OTHER, SELFPAY ==
[2023-08-03 12:38] VITALS: BMI 26.3
[2023-09-28 08:59] VITALS: BMI 17.7
--- NOTE | 2023-10-02 | PATH_ITS ---
Note [facility] Accession Number: [id number] TESTS RESULT FLAG UNITS REF RANGE LAB Clinician Provided Cytology Information No. of containers..01 Other (Miscellaneous) Source: LEFT OVARIAN CYST FLUID DIAGNOSIS: LEFT OVARIAN CYST FLUID, ASPIRATION. NEGATIVE FOR MALIGNANT CELLS. SCANT CELLULARITY. RARE MACROPHAGES AND PROTEINACEOUS MATERIAL, COMPATIBLE WITH CYST CONTENTS. THIS INTERPRETATION INCLUDES EVALUATION OF A CELL BLOCK. Pathologist ICD10: 01 N83.292 Signed out by: Paulette Keyes MD, Pathologist NPI- [id number] Performed by: Дмитрий Cardoso, Physiologist ([facility]) Gross description: 10 CC, YELLOW, CLEAR RECEIVED: FRESH IN BLUE CAP CONTAINER.VO /VDU 10/03/2023 112 Local FLAG LEGEND: L-Low Normal,H-High Normal,LL-Alert Low,HH-Alert High <-Panic Low,>-Panic High,A-Abnormal,AA-Critical Abnormal Performed at: 01 =Z [facility] [address], [place] [address] Raffy Lara MD, Performed at: [facility], [place], [place] [id number] MD Raffy Lara MD Phone: [phone]
--- NOTE | 2023-10-02 | PATH_ITS ---
Note [facility] Accession Number: [id number] TESTS RESULT FLAG UNITS REF RANGE LAB Clinician Provided Cytology Information No. of containers..01 Other (Miscellaneous) Source: PELVIC WASHINGS DIAGNOSIS: PELVIC WASHINGS NEGATIVE FOR MALIGNANT CELLS. REACTIVE MESOTHELIAL CELLS ARE PRESENT. THIS INTERPRETATION INCLUDES EVALUATION OF A CELL BLOCK. Pathologist ICD10: R19.00 Signed out by: Paulette Keyes MD, Pathologist NPI- [id number] Performed by: Дмитрий Cardoso, Call Taker ([facility]) Gross description: 20 CC, COLORLESS, CLEAR RECEIVED: FRESH IN BLUE CAP CONTAINER.VO /VDU 10/03/2023 0836 Local FLAG LEGEND: L-Low Normal,H-High Normal,LL-Alert Low,HH-Alert High <-Panic Low,>-Panic High,A-Abnormal,AA-Critical Abnormal Performed at: 01 =Z [facility] [address] [facility], [place] [address] Raffy Lara MD, Performed at: 01 [facility] [place] [address], [place], [place] [id number] MD Raffy Lara MD Phone: [phone]
--- NOTE | 2023-10-02 08:03 | PM.GYNHP.1 ---
History of Present Illness History of Present Illness Reason for admission: pelvic mass Narrative: Nicolette Pittman is a 77 year old female 3 para 3 with a pelvic mass who presents for laparoscopic bilateral salpingo-oophorectomy. Normal CA 125. [facility] Medical History (Updated 09/28/23 @ 09:06 by Kaley James RN) Easy bruisability Anxiety Hx of migraine headaches Neuropathy Difficulty swallowing GERD (gastroesophageal reflux disease) Arthritis Sinus drainage Asthma HLD (hyperlipidemia) HTN (hypertension) Diabetes Polymyalgia rheumatica Surgical History History of blepharoplasty Status post tonsillectomy and adenoidectomy Status post bunionectomy Status post appendectomy Social History household members: spouse Smoking Status: Never smoker alcohol intake: current Meds Home Medications and Allergies Home Medications Medication Instructions Recorded Confirmed Type Calcium/Vitamin D (#CITRACAL + D 1 tab PO DAILY ##0 11/18/11 10/02/23 History 315 MG-200 IU) Coenzyme Q10 (#CO Q-10) 50 mg PO DAILY ##0 11/18/11 10/02/23 History metformin 500 mg tablet,extended 1,000 mg PO BID ##0 11/18/11 10/02/23 History release 24 hr cyanocobalamin (vitamin B-12) 1,000 mcg PO DAILY ##0 11/23/15 10/02/23 History 1,000 mcg tablet,extended release pramipexole 0.25 mg tablet 0.25 mg PO BEDTIME #0 tabs 12/10/15 10/02/23 History (Mirapex) pregabalin 75 mg capsule (Lyrica) 75 mg PO BID #0 caps 01/06/16 10/02/23 History pravastatin 40 mg tablet 40 mg PO BEDTIME ##0 03/08/16 10/02/23 History triamcinolone acetonide 0.1 % 1 applic topical DAILY PRN Itching 09/19/17 10/02/23 History topical cream losartan 25 mg tablet 50 mg PO BID 08/09/19 10/02/23 History lidocaine 5 % topical patch 1 patch topical DAILY PRN back 07/05/22 06/10/24 Rx (Lidoderm) pain #15 ea methocarbamol 500 mg tablet 500 mg PO BEDTIME PRN muscle spasm 10/26/21 10/02/23 Rx #14 tabs aspirin 81 mg tablet,delayed 81 mg PO DAILY #30 tabs 08/03/23 10/02/23 Rx release duloxetine 60 mg capsule,delayed 60 mg PO BEDTIME 08/03/23 10/02/23 History release omeprazole 20 mg capsule,delayed 20 mg PO BIDAC 08/03/23 10/02/23 History release ondansetron 4 mg disintegrating 4 mg PO BID PRN Nausea And Vomiting 08/03/23 10/02/23 History tablet Allergies Allergy/AdvReac Type Severity Reaction Status Date / Time No Known Drug Allergies Allergy Verified 10/02/23 08:41 Exam Narrative Exam Narrative: HEENT: No thyromegaly, no anterior cervical or supraclavicular lymphadenopathy. Lungs:Clear to auscultation bilaterally, no wheezes. Cardiovascular: Regular rate and rhythm, no murmurs, rubs, or gallops. Abdomen: Well-healed scars. No hepatosplenomegaly. No masses palpable. External genitalia: Normal Vagina: Normal Cervix: Normal Bimanual exam: 5 Week size uterus. Mobile. Pelvic mass palpable and is mobile. Rectal: No masses. Extremities: No edema Assessment & Plan Assessment & Plan narrative: Assessment: 77-year-old 3 para 3 with a pelvic mass and a normal CA 125 Plan: Laparoscopic bilateral salpingo-oophorectomy The risks, benefits, and alternatives to the procedure were explained to the patient. The risks including bleeding, infection, injury to the bowel, bladder, or ureters. She understands these risks and agrees to proceed. A full par Q was held and consent form was signed.
[2023-10-02 08:42] VITALS: BP 131/68; PULSE 75; RESP 16; TEMP 37.2; O2SAT 97; BMI 17.7
--- NOTE | 2023-10-02 09:14 | PM.PREOP ---
Pre-operative Note Interval Note History & Physical reviewed/Exam performed by Physician: Yes Changes to H&P: No H&P completed within 30 days and has changed as indicated here:: 10/02/23
[2023-10-02] MEDS: CEFAZOLIN 2 GM/100 ML PREMIX 100 ML IV (09:21)
--- NOTE | 2023-10-02 09:48 | SUR.OPER ---
Lithotomy on padded OR bed, head on pillow, arms secured on padded arm boards at <90 degrees abduction. Legs secured in padded yellow fins stirrups.
[2023-10-02] MEDS: BUPIVACAINE 0.5% (PF) 30 ML, EPINEPHrine 0.15 MG INJ (09:56)
[2023-10-02] MEDS: ACETAMINOPHEN IV 1,000 MG/100 ML VIAL 400 MG IV (10:00)
[2023-10-02 10:48] VITALS: BP 125/62; PULSE 57; RESP 14; TEMP 37.1; O2SAT 93
--- NOTE | 2023-10-02 10:49 | P.OP_ITS ---
Operative Date/Time/Diagnoses Date of procedure: 10/02/23 Time of procedure: 10:49 Pre-op diagnosis: Pelvic mass, 0 rads 4 Normal CA 125 Post-op diagnosis: same Procedure & Clinicians Procedure: Procedures Operation Date: 10/02/23 09:15 Actual Procedure Side Surgeon p Laparoscopic bilateral Salpingectomy with BILATERAL Oophorectomy AND LYSIS OF ADHESIONS AND PELVIC WASHINGS Sendy Curry MD Indications: 77-year-old 3 para 3 with a pelvic mass that was suspicious with papillations CA 125 normal Surgeon: Sendy Curry Anesthesia Type: General and Local Operative Notes Findings: 5 week size anteverted uterus Normal right tube and ovary Normal left tube 7 cm simple cyst on the left ovary Adhesion between the colon and the left lower quadrant anterior abdominal wall Normal liver and gallbladder Appendix previously removed Closure Type: primary Specimen(s): left tube & ovary, right tube & ovary, washings (Pelvic washings) and other (Left ovarian cyst fluid) Applied: catheter (In/out) Estimated blood loss (mL): 5 Blood products transfused: none Procedure in detail: After informed consent was obtained, the patient was taken to the operating room where she was placed in the dorsal supine position. After adequate general endotracheal anesthesia was achieved, she was placed in the dorsal lithotomy position, and prepped and draped in the usual sterile fashion. A time-out was performed. A bivalve speculum was placed into the vagina and the anterior lip of the cervix was grasped with a single-tooth tenaculum. The cervical os was sequentially dilated until the Zumi uterine manipulator could pass easily into the endometrial cavity. Single-tooth tenaculum was removed from the anterior lip of the cervix. The bivalve speculum was removed from the vagina. Attention was then turned to the abdomen where 6 cc of 0.5% Marcaine with epinephrine were injected in the umbilical fold. A 5 mm incision was made. The Veress needle was placed into the peritoneal cavity, and its placement confirmed by aspiration and drop test. The abdominal cavity was insufflated with 2.8 L of CO2. The Veress needle was removed, and a 5 mm trocar was placed without difficulty. Two other incisions were made 4 cm lateral to the umbilicus after 6 cc of 0.5% Marcaine with epinephrine were injected. Two 5 mm incisions were made. Two 5 mm trocars were placed under direct visualization. The tubes and ovaries were identified with the findings noted above. 30 cc of saline were placed into the pelvis. This was aspirated and sent for pelvic washings. The liver, gallbladder, and appendix were visualized with the findings noted above. The left tube and ovary were grasped with an atraumatic grasper. Using the power seal, the infundibulopelvic ligament on the left side was cauterized and cut the mesosalpinx was then cauterized and cut all the way to the cornua of the uterus. The tube was amputated at the cornua. This was repeated on the patient's right side. The tubes and ovaries were placed into the right lower quadrant. 6 cc of 0.5% Marcaine with epinephrine were injected above the pubic symphysis. A 12 mm incision was made. A 12 mm trocar was placed under direct visualization. The small endobag was placed into the peritoneal cavity and opened. The tubes and ovaries were placed into the bag. The trocar was removed. Hemostasis was achieved. The edges of the bag were brought up through the skin. Using a 10 cc syringe the left ovarian cyst was aspirated of clear yellow fluid. This was sent to cytology. The endobag was then brought up through the skin without di fficulty. The fascia on the suprapubic incision was closed with 0 Vicryl in a running fashion. All of the incisions were closed with 4-0 Monocryl in a subcuticular fashion. Steri-Strips and Allevyn dressings were placed. The Zumi uterine manipulator was removed from the uterus. Sponge, lap, and instrument counts were correct x2. The patient tolerated the procedure well, and was taken to PACU in stable condition. Complications: none Post-operative Condition: stable Disposition: PACU Plan for aftercare: Home after recovery
[2023-10-02 10:53] VITALS: BP 129/65; PULSE 52; RESP 14; O2SAT 100
[2023-10-02] MEDS: LACTATED RINGERS 1,000 ML 21 ML IV (10:55)
[2023-10-02 10:58] VITALS: BP 107/54; PULSE 53; RESP 14; TEMP 36.6; O2SAT 99
[2023-10-02 11:03] VITALS: BP 109/58; PULSE 46; RESP 12; O2SAT 96
[2023-10-02 11:07] VITALS: BP 111/58; PULSE 50; RESP 14; O2SAT 98
== END 2023-10-02 11:34 | disposition home or self-care (01) ==
PROVIDERS: PCP Student in an Organized Health Care Education/Training Program; Referring Provider Obstetrics & Gynecology; Visit Provider Obstetrics & Gynecology
PROC: (CPT 58661; principal; 2023-10-02 09:15)
DX: R19.00 Intra-abdominal and pelvic swelling, mass and lump, unspecified site (principal); N83.292 Other ovarian cyst, left side; K66.0 Peritoneal adhesions (postprocedural) (postinfection)
CPT/HCPCS: 58661; 82962; J0136; J0171; J0690; J1100; J2405; J2704; J3010

== ENCOUNTER → 2024-04-18 08:23 | Outpatient (CLI) | payer MEDICARE, OTHER, SELFPAY ==
[2023-08-03 12:38] VITALS: BMI 26.3
--- NOTE | 2024-04-18 08:24 | DI.MG.S_ITS ---
BILATERAL DIGITAL SCREENING MAMMOGRAM 3D/2D WITH CAD: 04/18/2024 CLINICAL: Routine screening. Comparison is made to exams dated: 04/04/2023 mammogram, 03/12/2022 mammogram, and 03/25/2020 mammogram - [facility]. There are scattered areas of fibroglandular density (category b / 25%-50% glandular tissue). Current study was also evaluated with a Computer Aided Detection (CAD) system. There are benign calcifications in the left breast. There also are benign vascular calcifications in the right breast. No significant masses, calcifications, or other findings are seen in either breast. There has been no significant interval change. IMPRESSION: BENIGN There is no mammographic evidence of malignancy. A 1 year screening mammogram is recommended. Based on the Tyrer Cuzick model (a risk assessment model) the patient's lifetime risk is 1.6% and her 10 year risk is 0.0%. According to the ACR, ACS, and NCCN guidelines, an annual breast MRI exam along with mammogram is recommended if the patient's lifetime risk is 20% or greater. This exam was interpreted at Station ID: [id number]. NOTE: For mammograms, a report in lay terms will be sent to the patient. Approximately 15% of breast malignancies will not be visualized mammographically. In the management of a palpable breast mass, a negative mammogram must not discourage biopsy of a clinically suspicious lesion. Electronically Signed By: Cee garay/tay:04/22/2024 08:31:10 copy to: Brayden Stuart letter sent: Normal Exam ACR BI-RADS Category 2: Benign
== END ==
PROVIDERS: PCP Internal Medicine; Referring Provider Internal Medicine; Visit Provider Internal Medicine
DX: Z12.31 Encounter for screening mammogram for malignant neoplasm of breast (principal)
CPT/HCPCS: 77063; 77067

== ENCOUNTER → 2024-07-30 07:23 | Outpatient (CLI) | payer MEDICARE, OTHER, SELFPAY ==
[2023-08-03 12:38] VITALS: BMI 26.3
--- NOTE | 2024-07-30 07:24 | DI.CT.S_ITS ---
PROCEDURE: CT HEAD/BRAIN WO CON INDICATIONS: NEW ONSET SEVERE HEADACHE TECHNIQUE: Noncontrast 4.5 mm thick angled axial sections acquired from the foramen magnum to the vertex, with coronal and sagittal reformats. For radiation dose reduction, the following was used: automated exposure control, adjustment of mA and/or kV according to patient size. COMPARISON: None. FINDINGS: Image quality: Diagnostic. CSF spaces: Basal cisterns are patent. No extra-axial fluid collections. The ventricles are symmetric in size and shape. Brain: No intracranial bleeds or masses. There is cerebral volume loss for age, with resultant ventricular and sulcal prominence. There are periventricular and deep white matter chronic small vessel ischemic changes. There is intracranial internal carotid artery atherosclerosis. Skull and face: Calvarium and visualized facial bones appear intact, without suspicious lesions. Lens replacements. Sinuses: Visualized sinuses and mastoids are clear. IMPRESSION: No acute intracranial pathology. Age-related global volume loss and chronic microvascular ischemic changes are present. Dictated by: Alex Steward M.D. on 07/30/2024 at 10:27 Approved by: Alex Steward M.D. on 07/30/2024 at 10:29
== END ==
PROVIDERS: PCP Internal Medicine; Referring Provider Internal Medicine; Visit Provider Internal Medicine
DX: G44.59 Other complicated headache syndrome (principal); I65.29 Occlusion and stenosis of unspecified carotid artery
CPT/HCPCS: 70450

== ENCOUNTER → 2024-08-01 09:34 | Outpatient (CLI) | payer MEDICARE, OTHER, SELFPAY ==
[2023-08-03 12:38] VITALS: BMI 26.3
[2024-08-01 10:13] LABS: Add Manual Diff / Slide Review NO; Basophils Absolute Auto 100 /uL (0-100); Basophils Percent Auto 0.7 % (0-2); Eosinophils Absolute Auto 200 /uL (0-450); Eosinophils Percent Auto 2.5 % (2-4); Hematocrit 40.6 % (36-46); Hemoglobin 13.5 g/dL (12.0-16.0); Lymphocytes Absolute Auto 2600 /uL (1100-4500); Lymphocytes Percent Auto 33.5 % (25-40); Mean Corpuscular HGB Conc 33.1 % (30-36); Mean Corpuscular Hemoglobin 30.3 PG (26-34); Mean Corpuscular Volume 91.4 fL (80-100); Monocytes Absolute Auto 500 /uL (0-900); Monocytes Percent Auto 6.8 % (3-14); Neutrophils Absolute Auto 4300 /uL (1500-7000); Neutrophils Percent Auto 56.5 % (50-75); Platelet Count 294 X10^3/uL (150-400); Red Blood Cell Count 4.44 X10^6/uL (4.0-5.2); White Blood Cell Count 7.6 X10^3/uL (4.5-11.0)
[2024-08-01 10:37] LABS: Alanine Aminotransferase 24 IU/L (<35); Albumin 4.6 g/dL (3.5-5.0); Albumin Globulin Ratio 2.2 (1.0-2.8); Alkaline Phosphatase 59 U/L (38-126); Aspartate Aminotransferase 33 IU/L (14-36); BUN Creatinine Ratio 33.7 (6-22); Bilirubin Total 0.6 mg/dL (0.2-1.3); Blood Urea Nitrogen 29 mg/dL (7-17); Calcium 9.9 mg/dL (8.4-10.2); Carbon Dioxide 25 mmol/L (22-32); Chloride 102 mmol/L (98-107); Estimated Glomerular Filt Rate > 60 mL/min (>60); Globulin 2.1 g/dL (1.7-4.1); Glucose 124 mg/dL (80-110); HEMOLYSIS < 15 (0-50); Potassium 4.7 mmol/L (3.4-5.1); Sodium 136 mmol/L (137-145); Total Protein 6.7 g/dL (6.3-8.2)
[2024-08-01 10:44] LABS: Rheumatoid Factor 9.3 IU/mL (<12.0)
[2024-08-01 11:03] LABS: Erythrocyte Sedimentation Rate 6 MM/HR (0-20)
[2024-08-01 23:09] LABS: CRP, High Sensitivity 1.47 mg/L (0.00-3.00)
[2024-08-06 21:11] LABS: ANA Screen, IFA Negative (.)
== END ==
PROVIDERS: PCP Internal Medicine; Referring Provider Ophthalmology; Visit Provider Ophthalmology
DX: G44.52 New daily persistent headache (NDPH) (principal); H53.453 Other localized visual field defect, bilateral
CPT/HCPCS: 36415; 80053; 85025; 85651; 86038; 86140; 86430

== ENCOUNTER → 2024-08-01 11:54 | Outpatient (CLI) | payer MEDICARE, OTHER, SELFPAY ==
[2023-08-03 12:38] VITALS: BMI 26.3
--- NOTE | 2024-08-01 11:56 | DI.MRI.S_ITS ---
PROCEDURE: MR HEAD/BRAIN WO/W CON INDICATIONS: VISUAL FIELD DEFECT TECHNIQUE: Noncontrast axial T1 spin echo, axial T2 fast spin echo, sagittal and axial FLAIR, coronal T2 fast spin echo, axial gradient echo, axial diffusion and ADC through the brain. After the administration of contrast, axial and coronal and sagittal T1 spin echo with fat saturation through the brain. COMPARISON: [facility], MR, MR HEAD/BRAIN WO CON, 08/03/2023, 14:55. [facility], CT, CT HEAD/BRAIN WO CON, 07/30/2024, 7:34. FINDINGS: Image quality: This examination is limited by involuntary motion artifact. CSF spaces: Basal cisterns are patent. No extra-axial fluid collections. Ventricles are normal in size and shape. Brain: No midline shift. No intracranial bleeds or masses. No abnormal intracranial enhancement. There is cerebral volume loss for age. There is periventricular white matter chronic small vessel ischemic change. The brainstem appears normal. Diffusion-weighted images demonstrate no acute infarct. No chronic ischemic insults. Normal intravascular flow voids are present. Relatively prominent perivascular spaces are noted. No mass effect can be seen upon the optic chiasm. Skull and face: Calvarial marrow is normal in signal. Orbits appear normal. Note is made of bilateral lens replacements. Sinuses: No significant paranasal sinus disease can be seen. There is mild right-sided and minimal left-sided mastoid air cell fluid. IMPRESSION: No imaging explanation is found for this patient's presenting symptoms. No findings of acute or subacute infarction can be seen. No masses or abnormal enhancement can be seen. No prior territorial infarct can be seen. Additional findings: Improved mastoid air cell fluid compared to the prior MRI Dictated by: Brendon Marte M.D. on 08/01/2024 at 12:34 Approved by: Brendon Marte M.D. on 08/01/2024 at 12:37
== END ==
PROVIDERS: PCP Internal Medicine; Referring Provider Internal Medicine; Visit Provider Ophthalmology
DX: H53.453 Other localized visual field defect, bilateral (principal); G44.52 New daily persistent headache (NDPH)
CPT/HCPCS: 36415; 70553; 80053; 85025; 85651; 86038; 86140; 86430; A9579

== ENCOUNTER → 2025-01-30 15:45 | Outpatient (CLI) | payer MEDICARE, OTHER, SELFPAY ==
[2023-08-03 12:38] VITALS: BMI 26.3
[2025-02-02 11:39] LABS: E coli Shiga Toxin EIA Negative (Negative)
[2025-02-02 13:36] LABS: Salmonella/Shigella Screen Final report (.)
[2025-02-05 14:09] LABS: Calprotectin, Stool 17 ug/g (0-120)
== END ==
PROVIDERS: PCP Internal Medicine; Referring Provider Physician Assistant; Visit Provider Physician Assistant
DX: R19.7 Diarrhea, unspecified (principal)
CPT/HCPCS: 83993; 87045; 87177; 87329

== ENCOUNTER → 2025-02-19 07:33 | Outpatient (CLI) | payer MEDICARE, OTHER, SELFPAY ==
[2023-08-03 12:38] VITALS: BMI 26.3
--- NOTE | 2025-02-19 07:35 | DI.NM.S_ITS ---
PROCEDURE: NM GASTRIC EMPTYING STUDY RADIOPHARMACEUTICAL: 1 mCi Tc-99m sulfur colloid in an egg sandwich. INDICATIONS: Nausea and vomiting TECHNIQUE: A Tc-99m labeled sulfur colloid labeled egg sandwich or oatmeal was served to the patient. Anterior and posterior planar images of the abdomen were obtained at 0 minutes and 30 minutes, then at hourly intervals up to 4 hours. The patient was upright and ambulating during the interval. COMPARISON: None. FINDINGS: The stomach has normal size, morphology, and position. There is normal emptying of solid gastric contents from the stomach by visual inspection. No gastroesophageal reflux is visualized. The percentage of tracer retained at specific time points are as follows: Time point Percent gastric retention Normal range 30 minutes 42 70% or more 1 hour 5 30% to 90% 2 hours 1 60% or less No images acquired at 3 or 4 hours. Possible rapid gastric emptying detected 1 hour. IMPRESSION: No scintigraphic findings concerning for delayed gastric emptying. Possible rapid gastric emptying/dumping. Correlate with symptoms. Dictated by: Lynda Freedman M.D. on 02/19/2025 at 12:34 Approved by: Lynda Freedman M.D. on 02/19/2025 at 12:36
== END ==
LOC: NUCM 07:34
PROVIDERS: PCP Family Medicine; Referring Provider Physician Assistant; Visit Provider Physician Assistant
DX: E11.9 Type 2 diabetes mellitus without complications (principal); R11.2 Nausea with vomiting, unspecified
CPT/HCPCS: 78264; A9541